=== PATIENT | female | born 1940 | race Caucasian/White ===

== ENCOUNTER → 2016-08-22 | Outpatient (CLI) | payer OTHER, MEDICARE ==
[2014-09-08 14:45] VITALS: BP 156/92
--- NOTE | 2016-08-23 16:38 | NM ---
BONE SCAN CLINICAL INDICATION: Thoracic compression fracture PROCEDURE: Approximately 2-4 hours following intravenous administration of 25.3 mCi of [id number], whole body delayed planar images were obtained from the anterior and posterior projections. COMPARISON: None FINDINGS: Degenerative uptake throughout the visualized thoracolumbar spine. There is normal by distribution of the radiotracer within the genitourinary system and soft tissues. IMPRESSION: 1. Degenerate uptake throughout the thoracolumbar spine. It should be noted bone scan is a nonspeci fic examination and evaluation of compression fractures is better performed by x-ray and cross-secti onal imaging. Reported By:
== END ==
LOC: RAD 08:51
PROVIDERS: ATTEND Physical Medicine & Rehabilitation Pain Medicine
DX: G54.3 Thoracic root disorders, not elsewhere classified (principal)
CPT/HCPCS: 78306

== ENCOUNTER → 2016-10-30 | Outpatient (CLI) | payer OTHER, MEDICARE ==
[2014-09-08 14:45] VITALS: BP 156/92
[2016-10-30 08:53] LABS: BASOPHILS # (AUTO) 0.1 X10^3/uL (0.0-0.1); BASOPHILS % (AUTO) 1.1 % (0.2-1.0); EOSINOPHILS # (AUTO) 0.1 x10^3/uL (0.0-0.2); EOSINOPHILS % (AUTO) 1.4 % (0.9-2.9); HEMATOCRIT 36.6 % (36.0-47.0); HEMOGLOBIN 12.3 g/dL (12.0-16.0); LYMPHOCYTES # (AUTO) 1.6 X10^3/uL (1.3-2.9); LYMPHOCYTES % (AUTO) 23.4 % (21.0-51.0); MEAN CORPUSCULAR HEMOGLOBIN 30.8 pg (27.0-34.0); MEAN CORPUSCULAR HGB CONC 33.6 g/dL (33.0-35.0); MEAN CORPUSCULAR VOLUME 91.6 fL (80.0-100.0); MEAN PLATELET VOLUME 8.4 fL (7.4-11.0); MONOCYTES # (AUTO) 0.6 x10^3/uL (0.3-0.8); MONOCYTES % (AUTO) 9.5 % (0.0-13.0); NEUTROPHILS # (AUTO) 4.4 x10^3/uL (2.2-4.8); NEUTROPHILS % (AUTO) 64.6 % (42.0-75.0); PLATELET COUNT 311 X10^3/uL (150.0-450.0); RED BLOOD COUNT 3.99 X10^6/uL (3.5-5.4); RED CELL DISTRIBUTION WIDTH 12.5 % (11.6-16.5); WHITE BLOOD COUNT 6.8 X10^3/uL (3.6-10.0)
[2016-10-30 08:53] LABS: BILIRUBIN,URINE NEGATIVE (NEGATIVE); BLOOD/HEMOGLOBIN,URINE NEGATIVE (NEGATIVE); GLUCOSE, URINE NEGATIVE (NEGATIVE); KETONES,URINE NEGATIVE (NEGATIVE); LEUKOCYTE ESTERASE ,URINE 2+ (NEGATIVE); NITRITES,URINE NEGATIVE (NEGATIVE); PROTEIN,URINE NEGATIVE (NEGATIVE); UROBILINOGEN,URINE NORMAL (NORMAL)
[2016-10-30 09:01] LABS: ALANINE AMINOTRANSFERASE 26 Units/L (12-78); ALBUMIN 4.2 g/dL (3.4-5.0); ALKALINE PHOSPHATASE 53 Units/L (46-116); ASPARTATE AMINO TRANSFERASE 21 Units/L (15-37); BLOOD UREA NITROGEN 25 mg/dL (7-18); CALCIUM 9.4 mg/dL (8.5-10.1); CARBON DIOXIDE 27.6 mmol/L (21-32); CHLORIDE 105 mmol/L (98-107); CHOL/HDL RATIO 2.4 (0.0-5.0); CHOLESTEROL 194 mg/dL (0-200); CREATININE 1.31 mg/dL (0.55-1.02); GLUCOSE 106 mg/dL (65-99); HDL CHOLESTEROL 82 mg/dL (40-60); SODIUM 142 mmol/L (136-145); TOTAL PROTEIN 7.7 g/dL (6.4-8.2); TRIGLYCERIDES 108 mg/dL (0-150); eGFR BLACK RACES 50 (>60); eGFR NON BLACK RACES 42 (>60)
[2016-10-30 09:02] LABS: APPEARANCE,URINE HAZY (CLEAR); BACTERIA,URINE TRACE /HPF (NEGATIVE); COLOR,URINE YELLOW (YELLOW); RBC,URINE 0-2 /HPF (NEGATIVE); SQUAMOUS EPITHELIAL CELL,UR FEW /HPF (NEGATIVE)
== END ==
LOC: LAB 08:18
PROVIDERS: ATTEND Family Medicine
DX: I10 Essential (primary) hypertension (principal); E78.00 Pure hypercholesterolemia, unspecified; Z79.899 Other long term (current) drug therapy
CPT/HCPCS: 36415; 80053; 80061; 81001; 85025

== ENCOUNTER → 2017-01-02 | Outpatient (CLI) | payer OTHER, MEDICARE ==
[2014-09-08 14:45] VITALS: BP 156/92
--- NOTE | 2017-01-02 12:09 | CT ---
STUDY: CT HEAD WITHOUT CONTRAST HISTORY: Weakness. Gait abnormalities. COMPARISON: None. TECHNIQUE: Multiple axial images of the head were obtained from the skull base to the vertex without administration of IV contrast. Automated exposure control (AEC) was utilized to adjust the MA and/or kV. Findings: The sulci, cisterns and ventricles are prominent consistent with diffuse volume loss. There are confluent and scattered foci of low attenuation in the periventricular and subcortical whit e matter of both hemispheres. This is a nonspecific finding which likely represents microangiopathic change in a patient of this age. There is no evidence of acute territorial infarction, hemorrhage, mass, mass effect or midline shift. There are no abnormal extra-axial fluid collections. There is no evidence of acute osseous abnormality or significant soft tissue swelling. IMPRESSION: 1. No evidence of acute intracranial abnormality. 2. Nonspecific white matter change and volume loss as described. 3. If there remains strong clinical concern for acute intracranial abnormality, then an MRI examinati on should be considered for further evaluation. Reported By:
--- NOTE | 2017-01-02 12:13 | CT ---
STUDY: CT OF THE CERVICAL SPINE HISTORY: Weakness. Gait abnormalities. Technique: Multiple axial images of the cervical spine were obtained from the skull base to the thora cic inlet without administration of IV contrast. Sagittal and coronal reformats were performed and r eviewed. Automated exposure control (AEC) was utilized to adjust the MA and/or kV. Comparison: None. Findings: There is multilevel degenerative disk disease and degenerative endplate change. This is probably most notable at C3/4. There is grade 1 anterolisthesis of C6 on C7. This appears degenerative in nature. There is no evidence of acute fracture. Facet alignment is within normal limits bilaterally. There is multilevel facet arthropathy. The spinous processes are intact. There is no significant prevertebral soft tissue swelling. The lateral masses of C1, and the C1/C2 relationship are normal. The odontoid process is intact. The occipital condyles and their relationship with C1 are normal. Metallic foreign body from spinal stimulator projects over the upper thoracic spine. IMPRESSION: 1. No evidence of acute cervical spine fracture. 2. Grade 1 anterolisthesis of C6 on C7, likely degenerative in nature. 3. Multilevel cervical spondylosis. 4. Spinal stimulator electrodes projecting over the dorsal aspect of the upper thoracic spine. Reported By:
--- NOTE | 2017-01-02 17:33 | CT ---
HISTORY: Weakness, gait abnormalities. Study: CT lumbar spine without contrast Comparison: MRI lumbar spine dated December 13, 2013. Technique: Multiple axial images of the lumbar spine were obtained from the thoracolumbar junction t o the sacrum without the administration of IV contrast. Sagittal and coronal reformats were performe d and reviewed. Dose reduction techniques including Automated Exposure Control (AEC) and adjustment of mA and kV were utilized. Findings: Mild/moderate levo curvature of the lumbar spine. No acute fracture or listhesis. Multilevel mild to severe disc space narrowing. Multilevel endplate sclerosis, facet arthrosis, and disc osteophyte comp lexes. Although this is worse at L5-S1 with broad-based disc bulge causing moderate bilateral neural foraminal narrowing and spinal canal stenosis to 9 mm. The soft tissues are unremarkable. IMPRESSION: Chronic findings as above. Reported By:
== END | disposition home or self-care (01) | DRG 93 ==
LOC: RAD 10:54
PROVIDERS: ATTEND Nurse Practitioner Adult Health
DX: R26.89 Other abnormalities of gait and mobility (principal); M62.81 Muscle weakness (generalized); M47.892 Other spondylosis, cervical region; M48.06 Spinal stenosis, lumbar region
CPT/HCPCS: 70450; 72125; 72131

== ENCOUNTER 2022-10-28 11:56 | Inpatient (IN) ==
--- NOTE | 2022-10-28 12:24 | DR.AMS ---
HPI Time Seen Time Seen by Provider: 10/28/22 12:23 PCP Primary Care Physician: DR LEWIS Complaint Chief Complaint:: PT C/O GENERALIZED WEAKNESS THAT STARTED YESTERDAY AND PROGRESSED TO THE POINT THAT THIS MORNING HER WAS UNABLE TO GET HER OUT OF THE BED. PT CURRENTLY C/O HEADACHE THAT STARTED JUST PRIOR TO ARRIVAL AND RIGHT ARM PAIN. COVID-19 Coronavirus risk:travel/contact w/high risk person: No Has patient experienced Coronavirus symptoms: No Source History Provided: Patient and Family Member Mode of Arrival Mode of Arrival: Stretcher Timing Onset of Chief Complaint: 10/28/22 PMH PMH Past Medical History: Yes Past Medical History: Arthritis, Dyslipidemia, GERD and Hypertension Past Medical History Comment: PARKINSONS Past Surgical History: Yes Surgical History: Hysterectomy Family History History of Family Medical Conditions: Yes Family Medical History: Hypertension Social History Does patient currently use any type of tobacco product: No Have you used tobacco products in the last 12 months: No Type of Tobacco Use: None Does any household member use tobacco: No Alcohol Use: None Do you use any recreational Drugs:: No Lives With: Spouse Lives Where: Home Travel Risk Coronavirus risk:travel/contact w/high risk person: No Has patient experienced Coronavirus symptoms: No Infectious screening In the last 2 months have you had wt loss of >10#?: NO Have you had fever, night sweats or hemotysis?: No Have you traveled outside the country in the last 6 months?: No Isolation: Standard PE Vitals Vital Signs: Temp Pulse Resp BP BP Pulse Ox O2 Del Method 10/28/22 18:00 80 13 96 10/28/22 18:00 158/67 10/28/22 17:45 80 15 98 10/28/22 17:45 160/75 10/28/22 17:30 79 11 L 97 10/28/22 17:30 129/67 10/28/22 17:15 79 14 97 10/28/22 17:15 134/67 10/28/22 17:00 79 16 98 10/28/22 17:00 141/70 10/28/22 16:45 80 12 97 10/28/22 16:45 145/73 10/28/22 16:30 82 11 L 97 10/28/22 16:30 129/63 10/28/22 16:15 86 13 96 10/28/22 16:15 136/63 10/28/22 16:00 90 14 97 10/28/22 16:00 100/55 10/28/22 15:45 86 14 98 10/28/22 15:45 119/60 10/28/22 15:37 122/62 10/28/22 15:37 90 16 97 10/28/22 15:30 85 16 98 10/28/22 15:15 88 12 97 10/28/22 15:00 89 16 98 10/28/22 16:14 100/55 10/28/22 16:00 18 10/28/22 14:45 84 13 10/28/22 14:30 84 17 10/28/22 14:15 87 17 10/28/22 14:00 85 14 10/28/22 13:45 81 14 10/28/22 14:53 18 10/28/22 13:30 80 17 10/28/22 13:15 80 14 10/28/22 13:01 82 14 10/28/22 13:12 20 10/28/22 12:45 85 17 100 10/28/22 12:45 164/76 10/28/22 12:31 85 18 99 10/28/22 12:31 163/74 10/28/22 12:30 86 16 99 10/28/22 12:15 86 14 99 10/28/22 12:13 87 9 L 99 10/28/22 12:10 98.4 F 86 22 190/84 99 Room Air ROR Labs Reviewed Result Diagrams: 10/28/22 12:34 10/28/22 12:34 Laboratory: WBC 5.7 X10^3/uL (3.6-10.0) 10/28/22 12:34 RBC 3.94 X10^6/uL (3.5-5.4) 10/28/22 12:34 Hgb 12.4 g/dL (12.0-16.0) 10/28/22 12:34 Hct 37.4 % (36.0-47.0) 10/28/22 12:34 MCV 95.0 fL (80.0-100.0) 10/28/22 12:34 MCH 31.6 pg (27.0-34.0) 10/28/22 12:34 MCHC 33.2 g/dL (33.0-35.0) 10/28/22 12:34 RDW 13.8 % (11.6-16.5) 10/28/22 12:34 Plt Count 306 X10^3/uL (150.0-450.0) 10/28/22 12:34 MPV 7.6 fL (7.4-11.0) 10/28/22 12:34 Neut % (Auto) 58.7 % (42.0-75.0) 10/28/22 12:34 Lymph % (Auto) 26.8 % (21.0-51.0) 10/28/22 12:34 [place] % (Auto) 12.1 % (0.0-13.0) 10/28/22 12:34 Eos % (Auto) 2.0 % (0.9-2.9) 10/28/22 12:34 Baso % (Auto) 0.4 % (0.2-1.0) 10/28/22 12:34 Neut # (Auto) 3.4 x10^3/uL (2.2-4.8) 10/28/22 12:34 Lymph # (Auto) 1.5 X10^3/uL (1.3-2.9) 10/28/22 12:34 [place] # (Auto) 0.7 x10^3/uL (0.3-0.8) 10/28/22 12:34 Eos # (Auto) 0.1 x10^3/uL (0.0-0.2) 10/28/22 12:34 Baso # (Auto) 0.0 X10^3/uL (0.0-0.1) 10/28/22 12:34 Absolute Nucleated RBC 0.1 /100WBC 10/28/22 12:34 Sodium 142 mmol/L (136-145) 10/28/22 12:34 Corrected Sodium TNP 10/28/22 12:34 Potassium 3.6 mmol/L (3.5-5.1) 10/28/22 12:34 Chloride 103 mmol/L (98-107) 10/28/22 12:34 Carbon Dioxide 32.4 mmol/L (21-32) H 10/28/22 12:34 BUN 27 mg/dL (7-18) H 10/28/22 12:34 Creatinine 1.23 mg/dL (0.55-1.02) H 10/28/22 12:34 Est GFR (MDRD) Af Amer 53 (>60) L 10/28/22 12:34 Est GFR (MDRD) Non-Af 44 (>60) L 10/28/22 12:34 Glucose 94 mg/dL (65-99) 10/28/22 12:34 Calcium 8.7 mg/dL (8.5-10.1) 10/28/22 12:34 Corrected Calcium TNP 10/28/22 12:34 Total Bilirubin 0.50 mg/dL (0.2-1.0) 10/28/22 12:34 AST 18 Units/L (15-37) 10/28/22 12:34 ALT 11 Units/L (12-78) L 10/28/22 12:34 Alkaline Phosphatase 58 Units/L (46-116) 10/28/22 12:34 Creatine Kinase 78 Units/L (26-192) 10/28/22 12:24 Troponin I High Sens 8.4 ng/L (4.0-60.0) 10/28/22 12:24 Total Protein 6.4 g/dL (6.4-8.2) 10/28/22 12:34 Albumin 3.6 g/dL (3.4-5.0) 10/28/22 12:34 Globulin 2.8 g/dL (2.5-4.5) 10/28/22 12:34 Albumin/Globulin Ratio 1.3 Ratio (1.1-2.1) 10/28/22 12:34 Amylase 73 Units/L (25-115) 10/28/22 12:34 Lipase 96 Units/L (73-393) 10/28/22 12:34 Specimen Type Catherized urine 10/28/22 12:45 Urine Color Straw (YELLOW) 10/28/22 12:45 Urine Appearance Clear (CLEAR) 10/28/22 12:45 Urine pH 6.5 (5.0 - 8.0) 10/28/22 12:45 Ur Specific [place] 1.015 (1.000-1.030) 10/28/22 12:45 Urine Protein Negative (NEGATIVE) 10/28/22 12:45 Urine Glucose (UA) Negative (NEGATIVE) 10/28/22 12:45 Urine Ketones Negative (NEGATIVE) 10/28/22 12:45 Urine Blood Negative (NEGATIVE) 10/28/22 12:45 Urine Nitrite Negative (NEGATIVE) 10/28/22 12:45 Urine Bilirubin Negative (NEGATIVE) 10/28/22 12:45 Urine Urobilinogen Normal (NORMAL) 10/28/22 12:45 Ur Leukocyte Esterase Negative (NEGATIVE) 10/28/22 12:45 Opioid Opioid Risk Tool Age (Carl box if 16-45): No History of Preadolescent Sexual Abuse: No Total: 0 Total Score Risk Category: Low Risk Copyright: [facility] predicting aberrant behaviors Discharge Plan Diagnosis Discharge Problem: Acute dehydration, Generalized weakness, Headache Discharge Plan Patient Disposition: 01 HOME, SELF-CARE Condition: Stable Prescriptions: No Action polyethylene glycol 3350 [Miralax] 17 gram Powder In Packet 17 g PO PRN PRN baclofen 10 mg tablet 10 mg PO BID hydrocodone-acetaminophen 7.5-325 mg tablet 7.5 - 325 tab PO TID PRN losartan 25 mg tablet 25 mg PO DAILY Rx Instructions: IN EVENING metronidazole 0.75 % Gel 0.75 applic TOPICAL HS vitamin B6-vitamin E-magnesium Tablet 1 tab PO WEEKLY duloxetine 30 mg capsule,delayed release(DR/EC) 20 mg PO DAILY Label Comments: TAKE 1 CAPSULE BY MOUTH TWICE DAILY FOR NERVE PAIN Rx Instructions: 20 MG IN AM AND 40 MG IN PM cholecalciferol (vitamin D3) 100 mcg (4,000 unit) Capsule 100 mcg PO DAILY melatonin 10 mg Tablet 10 - 15 mg PO HS Rytary 36.25-145 mg Capsule, Extended Release 36.25 - 145 cap PO TID oxycodone-acetaminophen [Percocet] 10-325 mg tablet 1 tab PO TID MDD 3 PRNQty: 60 0RF Health Concerns: Post Hospitalization: new medications and changes needed to prevent readmission or further decline. Pt educated and given instructions on all concerns. Plan of Treatment: Continue with present treatment and follow up plan. Pt is to keep follow up appointment as instructed and take medications as ordered. Orders to Discharge Patient Discharge Orders: Transfer (Routine); Ordered 10/28/22 Ordered By: TODD COLEMAN Follow ups/Referrals Follow ups/Referrals: TANI LEWIS [Primary Care Provider] - 3 days
[2022-10-28 12:47] LABS: BASOPHILS % (AUTO) 0.4 % (0.2-1.0); EOSINOPHILS # (AUTO) 0.1 x10^3/uL (0.0-0.2); HEMATOCRIT 37.4 % (36.0-47.0); HEMOGLOBIN 12.4 g/dL (12.0-16.0); LYMPHOCYTES # (AUTO) 1.5 X10^3/uL (1.3-2.9); LYMPHOCYTES % (AUTO) 26.8 % (21.0-51.0); MEAN CORPUSCULAR HEMOGLOBIN 31.6 pg (27.0-34.0); MEAN CORPUSCULAR HGB CONC 33.2 g/dL (33.0-35.0); MEAN PLATELET VOLUME 7.6 fL (7.4-11.0); MONOCYTES # (AUTO) 0.7 x10^3/uL (0.3-0.8); MONOCYTES % (AUTO) 12.1 % (0.0-13.0); NEUTROPHILS # (AUTO) 3.4 x10^3/uL (2.2-4.8); NEUTROPHILS % (AUTO) 58.7 % (42.0-75.0); PLATELET COUNT 306 X10^3/uL (150.0-450.0); RED BLOOD COUNT 3.94 X10^6/uL (3.5-5.4); RED CELL DISTRIBUTION WIDTH 13.8 % (11.6-16.5); WHITE BLOOD COUNT 5.7 X10^3/uL (3.6-10.0)
[2022-10-28 12:57] LABS: BILIRUBIN,URINE NEGATIVE (NEGATIVE); BLOOD/HEMOGLOBIN,URINE NEGATIVE (NEGATIVE); GLUCOSE, URINE NEGATIVE (NEGATIVE); KETONES,URINE NEGATIVE (NEGATIVE); LEUKOCYTE ESTERASE ,URINE NEGATIVE (NEGATIVE); NITRITES,URINE NEGATIVE (NEGATIVE); PH,URINE 6.5 (5.0 - 8.0); PROTEIN,URINE NEGATIVE (NEGATIVE); UROBILINOGEN,URINE NORMAL (NORMAL)
[2022-10-28 12:59] LABS: APPEARANCE,URINE CLEAR (CLEAR); COLOR,URINE STRAW (YELLOW)
[2022-10-28 13:04] LABS: ALANINE AMINOTRANSFERASE 11 Units/L (12-78); ALBUMIN 3.6 g/dL (3.4-5.0); ALKALINE PHOSPHATASE 58 Units/L (46-116); AMYLASE 73 Units/L (25-115); ASPARTATE AMINO TRANSFERASE 18 Units/L (15-37); BLOOD UREA NITROGEN 27 mg/dL (7-18); CALCIUM 8.7 mg/dL (8.5-10.1); CARBON DIOXIDE 32.4 mmol/L (21-32); CHLORIDE 103 mmol/L (98-107); CREATININE 1.23 mg/dL (0.55-1.02); GLUCOSE 94 mg/dL (65-99); LIPASE 96 Units/L (73-393); POTASSIUM 3.6 mmol/L (3.5-5.1); SODIUM 142 mmol/L (136-145); TOTAL PROTEIN 6.4 g/dL (6.4-8.2); eGFR NON BLACK RACES 44 (>60)
[2022-10-28] MEDS ORDERED: ZOFRAN INJ 4 MG VIAL IVP ONE (13:06)
[2022-10-28] MEDS ORDERED: MORPHINE SULFATE INJ 2 MG INJ IVP ONE (13:06)
[2022-10-28] MEDS ORDERED: ZOFRAN INJ 4 MG VIAL ONE (13:07)
[2022-10-28] MEDS ORDERED: MORPHINE SULFATE INJ 2 MG INJ ONE (13:07)
--- NOTE | 2022-10-28 14:16 | CT ---
HISTORYheadache.STUDYBRAIN W/O CONCOMPARISONHead CT 11/29/2021TECHNIQUEMultiple CT axial images of the head were obtained without IV contrast. Coronal and sagittal images were reconstructed. Dose reduction techniques included Automated Exposure Control (AEC) and adjustment of mA and kV.FINDINGSAge-related findings include central and cortical atrophy with areas of low density in the periventricular white matter compatible with micro-ischemic changes. There is no mass, shift, or hemorrhage. Cerebellar tonsils are at an appropriate level. No fluid in the sinuses or mucosal thickening to suggest sinusitis. There is no mastoid effusion. Old left frontal sinus anterior wall fracture with repair is stable when compared to the prior study.IMPRESSION1. No acute findingElectronically signed by: Tiago Bass (Oct 28, 2022 14:15:09)
[2022-10-28] MEDS ORDERED: DILAUDID INJ IVP ONE ×2 (14:47→15:48)
[2022-10-28] MEDS ORDERED: DILAUDID INJ ONE ×2 (14:48→15:50)
[2022-10-28] MEDS ORDERED: NS 1,000 ML IV 1,000 ML IV ONE (15:48)
[2022-10-28] MEDS ORDERED: NS 1,000 ML IV 1,000 ML ONE (15:51)
--- NOTE | 2022-10-28 16:22 | CT ---
HISTORYabd painSTUDYCT abdomen pelvis without IV contrastCOMPARISONCT 05/03/2019TECHNIQUEMultiple axial images of the abdomen and pelvis were obtained from the lung bases to the pubic symphysis without the administration of IV contrast. Dose reduction techniques including Automated Exposure Control (AEC) and adjustment of mA and kV were utilized.FINDINGSThe visualized portions of the lung bases suggest CHF with probable areas of atelectasis and/or pulmonary edema.The liver and spleen display no abnormalities.Gallbladder appears normal. No biliary ductal dilation.No pancreatic abnormality is seen.The adrenal glands appear normal.Left extrarenal pelvis is similar to prior study. No nephrolithiasis or hydronephrosis. Multiple phleboliths are seen in the pelvis. No ureteral stone or dilation. Bladder is decompressed with a Fuentes catheter.Probable mild diffuse constipation. There is mild increased fluid in air in the nondilated small bowel. This could be passage of fluid bolus but consider possible gastroenteritis. Probable small sliding-type hiatus hernia. Appendix is not seen but no pericecal inflammation is seen. Distal rectum is not distended limiting evaluation.No adnexal masses are seen. Tiny umbilical hernia is seen containing fat.Abdominal aorta is normal in size.No suspicious lymphadenopathy.No free intraperitoneal air or fluid is seen.No acute bony abnormality is seen. Persistent prominent scoliosis.IMPRESSIONMild increased fluid and air in the small bowel could be passage of fluid bolus but consider possible gastroenteritis.Likely mild diffuse constipation.Electronically signed by: Carlos Joyner (Oct 28, 2022 16:22:05)
[2022-10-28 18:24] LABS: ABG ALLEN TEST POS; ABG BASE EXCESS 3.5 mmol/L (-2.0-2.0); ABG HCO3 29.6 mmol/L (22-26)
[2022-10-28] MEDS: NS 1,000 ML IV 1,000 ML IV SCH (20:30)
[2022-10-29 06:24] VITALS: BMI 28.5
[2022-10-29 06:30] LABS: BASOPHILS % (AUTO) 0.4 % (0.2-1.0); EOSINOPHILS % (AUTO) 0.6 % (0.9-2.9); HEMATOCRIT 33.7 % (36.0-47.0); HEMOGLOBIN 11.3 g/dL (12.0-16.0); LYMPHOCYTES # (AUTO) 1.1 X10^3/uL (1.3-2.9); LYMPHOCYTES % (AUTO) 17.4 % (21.0-51.0); MEAN CORPUSCULAR HEMOGLOBIN 32.1 pg (27.0-34.0); MEAN CORPUSCULAR HGB CONC 33.7 g/dL (33.0-35.0); MEAN CORPUSCULAR VOLUME 95.1 fL (80.0-100.0); MEAN PLATELET VOLUME 8.1 fL (7.4-11.0); MONOCYTES # (AUTO) 0.6 x10^3/uL (0.3-0.8); MONOCYTES % (AUTO) 10.1 % (0.0-13.0); NEUTROPHILS # (AUTO) 4.6 x10^3/uL (2.2-4.8); NEUTROPHILS % (AUTO) 71.5 % (42.0-75.0); PLATELET COUNT 291 X10^3/uL (150.0-450.0); RED BLOOD COUNT 3.54 X10^6/uL (3.5-5.4); RED CELL DISTRIBUTION WIDTH 13.5 % (11.6-16.5); WHITE BLOOD COUNT 6.4 X10^3/uL (3.6-10.0)
[2022-10-29 07:11] LABS: ALANINE AMINOTRANSFERASE 10 Units/L (12-78); ALBUMIN 3.1 g/dL (3.4-5.0); ALKALINE PHOSPHATASE 49 Units/L (46-116); ASPARTATE AMINO TRANSFERASE 18 Units/L (15-37); BLOOD UREA NITROGEN 19 mg/dL (7-18); CALCIUM 8.5 mg/dL (8.5-10.1); CHLORIDE 106 mmol/L (98-107); COR CA(FOR HYPOALB) 9.2 mg/dL (8.5-10.1); CREATININE 0.92 mg/dL (0.55-1.02); GLUCOSE 98 mg/dL (65-99); MAGNESIUM 1.7 mg/dL (2.0-2.9); POTASSIUM 3.7 mmol/L (3.5-5.1); SODIUM 143 mmol/L (136-145); TOTAL PROTEIN 5.7 g/dL (6.4-8.2); eGFR NON BLACK RACES > 60 (>60)
--- NOTE | 2022-10-29 14:45 | RAD ---
CHEST, 1 VIEWHISTORY: WHEEZINGStudy: Single view of the chest.Comparison:NoneFindings:Examination limited by poor positioning.Possible mild cardiomegaly. No focal consolidations. Possible trace right effusion. Osseous structures demonstrate no acute abnormality.IMPRESSION:1. Limited examination as above. No definite acute findings.Electronically signed by: ELENO CEDILLO (Oct 29, 2022 14:44:31)
[2022-10-29] MEDS ORDERED: LEVODOPA PO SCH ×2 (16:00→21:00)
[2022-10-29] MEDS ORDERED: [UNRECOGNIZED DRUG - OTHER] PO SCH ×2 (16:00→21:00)
[2022-10-29] MEDS ORDERED: CARBIDOPA PO SCH ×2 (16:00→21:00)
[2022-10-29] MEDS: LEVODOPA PO SCH ×2 (17:35→21:00)
[2022-10-29] MEDS: CARBIDOPA PO SCH ×2 (17:35→21:00)
[2022-10-29] MEDS: [UNRECOGNIZED DRUG - OTHER] PO SCH ×2 (17:35→21:00)
--- NOTE | 2022-10-29 18:54 | DR.H&P ---
H&P History & Physical for Day of: H&P Date: 10/29/22 Chief Complaint Chief Complaint: Generalized weakness, Altered mental status Dehydration Abdominal pain Allergies Allergies Allergy/AdvReac Type Severity Reaction Status Date / Time ciprofloxacin [From Cipro] Allergy Verified 01/23/22 17:50 meperidine [From Demerol] Allergy Verified 01/23/22 17:50 prochlorperazine Allergy Verified 01/23/22 17:50 [From Compazine] Sulfa (Sulfonamide Allergy Verified 01/23/22 17:50 Antibiotics) [SULFA] History of Present Illness History of Present Illness: Pt is a 82 year old female past medical history of Parkinsons's Disease, Hypertension, Arthritis presented with generalized weakness and altered mental status. Patient has been worsening for the past week and was unable to get out of bed yesterday. Patient does have severe Parkinson's disease, and is being followed by neurology and her PCP. Patient states she has also had decreased oral intake. Labs/imaging: WBC 6.4, hemoglobin 11.3, platelets 291, sodium 143, potassium 3.7, creatinine 1.23, glucose 98. UA negative. CT of the head no acute intracranial findings. Patient did have some abdominal pain. CT of the abdomen and pelvis revealed gastroenteritis or constipation. Patient denies nausea vomiting, diarrhea. Patient does have a history of chronic UTI and takes Macrobid daily. Plan: Will admit to [facility], start patient normal saline. Order CXR. Monitor mental status. Resume home medications, hold gabapentin and opioids due to AMS. Patient's AMS can be related to polypharmacy as patient is taking a lot of sedating medications. PT/OT consulted. Discussed plan with daughter. Advance diet as tolerated. Patient's worsening weakness can be due to severe Parkinso n's. Will repeat labs in the AM. Past Medical History Past Medical History: Arthritis, Dyslipidemia, GERD and Hypertension Past Surgical History Surgical History: TEXTILE [employer] Surgery, Hysterectomy, Joint Replacement, Ortho Surgery and Other Family History Family Medical History: Hypertension Social History Does patient currently use any type of tobacco product: No Have you used tobacco products in the last 12 months: No Type of Tobacco Use: None Does any household member use tobacco: No Alcohol Use: None Drug Use: Prescription Drugs Medications Home Medications: Home Medications Medication Instructions Recorded Confirmed Type baclofen 10 mg tablet 10 mg PO BID 09/20/21 10/29/22 History carbidopa ER 36.25 mg-levodopa 145 36.25 - 145 cap PO TID 09/20/21 09/20/21 History mg capsule,extended release (Rytary) cholecalciferol (vitamin D3) 100 100 mcg PO DAILY 09/20/21 09/20/21 History mcg (4,000 unit) capsule duloxetine 30 mg capsule,delayed 20 mg PO DAILY 09/20/21 09/20/21 History release hydrocodone 7.5 mg-acetaminophen 7.5 - 325 tab PO TID PRN 09/20/21 10/29/22 His tory 325 mg tablet losartan 25 mg tablet 25 mg PO DAILY 09/20/21 10/29/22 History melatonin 10 mg tablet 10 - 15 mg PO HS 09/20/21 09/20/21 History metronidazole 0.75 % topical gel 0.75 applic topical HS 09/20/21 09/20/21 History polyethylene glycol 3350 17 gram 17 g PO PRN PRN 09/20/21 09/20/21 History oral powder packet (Miralax) vitamin B6-vitamin E-magnesium 1 tab PO WEEKLY 09/20/21 09/20/21 History tablet Labs Result Diagrams: 10/29/22 05:35 10/29/22 05:35 Labs: Laboratory WBC 6.4 X10^3/uL (3.6-10.0) 10/29/22 05:35 RBC 3.54 X10^6/uL (3.5-5.4) 10/29/22 05:35 Hgb 11.3 g/dL (12.0-16.0) L 10/29/22 05:35 Hct 33.7 % (36.0-47.0) L 10/29/22 05:35 MCV 95.1 fL (80.0-100.0) 10/29/22 05:35 MCH 32.1 pg (27.0-34.0) 10/29/22 05:35 MCHC 33.7 g/dL (33.0-35.0) 10/29/22 05:35 RDW 13.5 % (11.6-16.5) 10/29/22 05:35 Plt Count 291 X10^3/uL (150.0-450.0) 10/29/22 05:35 MPV 8.1 fL (7.4-11.0) 10/29/22 05:35 Neut % (Auto) 71.5 % (42.0-75.0) 10/29/22 05:35 Lymph % (Auto) 17.4 % (21.0-51.0) L 10/29/22 05:35 [place] % (Auto) 10.1 % (0.0-13.0) 10/29/22 05:35 Eos % (Auto) 0.6 % (0.9-2.9) L 10/29/22 05:35 Baso % (Auto) 0.4 % (0.2-1.0) 10/29/22 05:35 Neut # (Auto) 4.6 x10^3/uL (2.2-4.8) 10/29/22 05:35 Lymph # (Auto) 1.1 X10^3/uL (1.3-2.9) L 10/29/22 05:35 [place] # (Auto) 0.6 x10^3/uL (0.3-0.8) 10/29/22 05:35 Eos # (Auto) 0.0 x10^3/uL (0.0-0.2) 10/29/22 05:35 Baso # (Auto) 0.0 X10^3/uL (0.0-0.1) 10/29/22 05:35 Absolute Nucleated RBC 0.0 /100WBC 10/29/22 05:35 Sample Site [place] 10/28/22 18:14 ABG pH 7.380 (7.35-7.45) 10/28/22 18:14 ABG pCO2 50.0 mmHg (35.0-45.0) H 10/28/22 18:14 ABG pO2 85.0 mmHg (80.0-100.0) 10/28/22 18:14 ABG HCO3 29.6 mmol/L (22-26) H 10/28/22 18:14 ABG O2 Saturation 96.0 % (90-100) 10/28/22 18:14 ABG Base Excess 3.5 mmol/L (-2.0-2.0) H 10/28/22 18:14 [place] Test Pos 10/28/22 18:14 A-a Gradient 52.0 mmHg 10/28/22 18:14 FiO2 28.0 10/28/22 18:14 Blood Gas Comments Pt dolores well elj 10/28/22 18:14 Sodium 143 mmol/L (136-145) 10/29/22 05:35 Corrected Sodium TNP 10/29/22 05:35 Potassium 3.7 mmol/L (3.5-5.1) 10/29/22 05:35 Chloride 106 mmol/L (98-107) 10/29/22 05:35 Carbon Dioxide 27.0 mmol/L (21-32) 10/29/22 05:35 BUN 19 mg/dL (7-18) H 10/29/22 05:35 Creatinine 0.92 mg/dL (0.55-1.02) 10/29/22 05:35 Est GFR (MDRD) Af Amer > 60 (>60) 10/29/22 05:35 Est GFR (MDRD) Non-Af > 60 (>60) 10/29/22 05:35 Glucose 98 mg/dL (65-99) 10/29/22 05:35 Calcium 8.5 mg/dL (8.5-10.1) 10/29/22 05:35 Corrected Calcium 9.2 mg/dL (8.5-10.1) 10/29/22 05:35 Magnesium 1.7 mg/dL (2.0-2.9) L 10/29/22 05:35 Total Bilirubin 0.50 mg/dL (0.2-1.0) 10/29/22 05:35 AST 18 Units/L (15-37) 10/29/22 05:35 ALT 10 Units/L (12-78) L 10/29/22 05:35 Alkaline Phosphatase 49 Units/L (46-116) 10/29/22 05:35 Creatine Kinase 78 Units/L (26-192) 10/28/22 12:24 Troponin I High Sens 8.4 ng/L (4.0-60.0) 10/28/22 12:24 Total Protein 5.7 g/dL (6.4-8.2) L 10/29/22 05:35 Albumin 3.1 g/dL (3.4-5.0) L 10/29/22 05:35 Globulin 2.6 g/dL (2.5-4.5) 10/29/22 05:35 Albumin/Globulin Ratio 1.2 Ratio (1.1-2.1) 10/29/22 05:35 Amylase 73 Units/L (25-115) 10/28/22 12:34 Lipase 96 Units/L (73-393) 10/28/22 12:34 Specimen Type Catherized urine 10/28/22 12:45 Urine Color Straw (YELLOW) 10/28/22 12:45 Urine Appearance Clear (CLEAR) 10/28/22 12:45 Urine pH 6.5 (5.0 - 8.0) 10/28/22 12:45 Ur Specific [place] 1.015 (1.000-1.030) 10/28/22 12:45 Urine Protein Negative (NEGATIVE) 10/28/22 12:45 Urine Glucose (UA) Negative (NEGATIVE) 10/28/22 12:45 Urine Ketones Negative (NEGATIVE) 10/28/22 12:45 Urine Blood Negative (NEGATIVE) 10/28/22 12:45 Urine Nitrite Negative (NEGATIVE) 10/28/22 12:45 Urine Bilirubin Negative (NEGATIVE) 10/28/22 12:45 Urine Urobilinogen Normal (NORMAL) 10/28/22 12:45 Ur Leukocyte Esterase Negative (NEGATIVE) 10/28/22 12:45 Review of Systems Constitutional: Weakness Eyes: No Symptoms Reported Respiratory: No Symptoms Reported Cardiovascular: No Symptoms Reported Gastrointestinal: Abdominal Pain Skin: No Symptoms Reported Neurological: Weakness and Confusion Physical Exam Vital Signs: Vital Signs Temperature 97.9 F Pulse Rate [Left Brachial] 102 Respiratory Rate 19 Blood Pressure [Left Arm] 118/62 O2 Sat by Pulse Oximetry 97 10/29/22 05:42 10/29/22 07:00 Pulse Rhythm [Apical] Regular Regular Pulse Strength [Apical] Normal Normal Respiratory Depth Normal Normal Respiratory Effort Normal Non-Labored Normal Non-Labored Respiratory Pattern Normal Normal Oxygen Delivery Method Nasal Cannula Nasal Cannula FIO2% 28 Oriented: Not Oriented Eyes: Normal Nose: Normal Respiratory: Clear Throughout Cardiovascular: Normal Auscultation: Bowel Sounds: Normal Palpation: Normal Tenderness: Normal Skin: Decreased [place]urgur Musculoskeletal: Motor Deficit Psychiatric: Normal Mood Description: Calm Affect: Normal Speech Pattern: Clear and Appropriate Assessment/Plan (1) Generalized weakness: Status: Acute (2) Acute dehydration: Status: Acute (3) 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
[2022-10-29] MEDS: MACROBID CAP 100 MG EXT REL PO SCH (21:00)
[2022-10-29] MEDS: NS 1,000 ML IV 1,000 ML IV SCH (21:30)
[2022-10-30 05:20] LABS: BASOPHILS # (AUTO) 0.1 X10^3/uL (0.0-0.1); BASOPHILS % (AUTO) 0.7 % (0.2-1.0); EOSINOPHILS % (AUTO) 0.2 % (0.9-2.9); HEMATOCRIT 36.7 % (36.0-47.0); HEMOGLOBIN 12.3 g/dL (12.0-16.0); LYMPHOCYTES # (AUTO) 1.2 X10^3/uL (1.3-2.9); LYMPHOCYTES % (AUTO) 13.7 % (21.0-51.0); MEAN CORPUSCULAR HEMOGLOBIN 31.4 pg (27.0-34.0); MEAN CORPUSCULAR HGB CONC 33.5 g/dL (33.0-35.0); MEAN CORPUSCULAR VOLUME 93.9 fL (80.0-100.0); MEAN PLATELET VOLUME 7.8 fL (7.4-11.0); MONOCYTES # (AUTO) 0.9 x10^3/uL (0.3-0.8); MONOCYTES % (AUTO) 10.2 % (0.0-13.0); NEUTROPHILS # (AUTO) 6.3 x10^3/uL (2.2-4.8); NEUTROPHILS % (AUTO) 75.2 % (42.0-75.0); PLATELET COUNT 279 X10^3/uL (150.0-450.0); RED BLOOD COUNT 3.91 X10^6/uL (3.5-5.4); RED CELL DISTRIBUTION WIDTH 13.1 % (11.6-16.5); WHITE BLOOD COUNT 8.4 X10^3/uL (3.6-10.0)
[2022-10-30 05:26] LABS: ALANINE AMINOTRANSFERASE 20 Units/L (12-78); ALBUMIN 3.1 g/dL (3.4-5.0); ALKALINE PHOSPHATASE 55 Units/L (46-116); ASPARTATE AMINO TRANSFERASE 17 Units/L (15-37); BLOOD UREA NITROGEN 22 mg/dL (7-18); CALCIUM 8.4 mg/dL (8.5-10.1); CARBON DIOXIDE 23.7 mmol/L (21-32); CHLORIDE 108 mmol/L (98-107); COR CA(FOR HYPOALB) 9.1 mg/dL (8.5-10.1); CREATININE 0.87 mg/dL (0.55-1.02); GLUCOSE 93 mg/dL (65-99); POTASSIUM 3.5 mmol/L (3.5-5.1); SODIUM 144 mmol/L (136-145); eGFR NON BLACK RACES > 60 (>60)
[2022-10-30] MEDS: K-RIDER 10 MEQ/NS 100 ML 10 MEQ/100 ML BAG IV PRN ×2 (06:33→10:29)
[2022-10-30] MEDS ORDERED: DULCOLAX SUPPOSITORY 10 MG RECTAL ONE (08:29)
[2022-10-30] MEDS ORDERED: CYMBALTA PO SCH (09:00)
[2022-10-30] MEDS ORDERED: CARBIDOPA LEVODOPA PO SCH (09:00)
[2022-10-30] MEDS ORDERED: [UNRECOGNIZED DRUG - OTHER] PO SCH (09:00)
[2022-10-30] MEDS: CARBIDOPA PO SCH ×4 (10:30→21:00)
[2022-10-30] MEDS: NEURONTIN TAB 600 MG PO SCH ×2 (10:30→21:42)
[2022-10-30] MEDS: LEVODOPA PO SCH ×4 (10:30→21:00)
[2022-10-30] MEDS: [UNRECOGNIZED DRUG - OTHER] PO SCH ×4 (10:30→21:00)
[2022-10-30] MEDS: COZAAR PO SCH (10:31)
[2022-10-30] MEDS: MIRALAX POWDER (255 GRAMS BTL) PO SCH (10:31)
[2022-10-30] MEDS: LIORESAL PO SCH ×2 (10:31→21:42)
[2022-10-30] MEDS: NS 1,000 ML IV 1,000 ML IV SCH ×3 (10:40→23:00)
[2022-10-30] MEDS: APRESOLINE INJ 20 MG VIAL IVP PRN ×2 (12:17→21:43)
[2022-10-30] MEDS: MORPHINE SULFATE INJ 2 MG INJ IVP PRN ×2 (13:18→21:43)
[2022-10-30] MEDS ORDERED: DULCOLAX SUPPOSITORY 10 MG ONE (15:33)
[2022-10-30] MEDS: LOVENOX INJ 40 MG SYR SC SCH (17:40)
[2022-10-30] MEDS: MACROBID CAP 100 MG EXT REL PO SCH (21:42)
[2022-10-30] MEDS: CYMBALTA PO SCH (22:00)
[2022-10-31] MEDS ORDERED: TYLENOL 325 MG TAB PO ONE (00:08)
[2022-10-31] MEDS: TYLENOL 325 MG TAB PO PRN ×2 (01:06→07:55)
[2022-10-31 05:57] LABS: BASOPHILS # (AUTO) 0.1 X10^3/uL (0.0-0.1); BASOPHILS % (AUTO) 1.2 % (0.2-1.0); EOSINOPHILS % (AUTO) 0.3 % (0.9-2.9); HEMATOCRIT 36.3 % (36.0-47.0); HEMOGLOBIN 12.3 g/dL (12.0-16.0); LYMPHOCYTES # (AUTO) 1.4 X10^3/uL (1.3-2.9); LYMPHOCYTES % (AUTO) 13.6 % (21.0-51.0); MEAN CORPUSCULAR HEMOGLOBIN 31.8 pg (27.0-34.0); MEAN CORPUSCULAR HGB CONC 33.9 g/dL (33.0-35.0); MEAN PLATELET VOLUME 8.3 fL (7.4-11.0); MONOCYTES # (AUTO) 1.3 x10^3/uL (0.3-0.8); MONOCYTES % (AUTO) 12.6 % (0.0-13.0); NEUTROPHILS # (AUTO) 7.2 x10^3/uL (2.2-4.8); NEUTROPHILS % (AUTO) 72.3 % (42.0-75.0); PLATELET COUNT 272 X10^3/uL (150.0-450.0); RED BLOOD COUNT 3.87 X10^6/uL (3.5-5.4); RED CELL DISTRIBUTION WIDTH 13.5 % (11.6-16.5); WHITE BLOOD COUNT 9.9 X10^3/uL (3.6-10.0)
[2022-10-31 06:12] LABS: ALANINE AMINOTRANSFERASE 11 Units/L (12-78); ALKALINE PHOSPHATASE 50 Units/L (46-116); ASPARTATE AMINO TRANSFERASE 21 Units/L (15-37); BLOOD UREA NITROGEN 21 mg/dL (7-18); CALCIUM 8.2 mg/dL (8.5-10.1); CARBON DIOXIDE 21.7 mmol/L (21-32); CHLORIDE 105 mmol/L (98-107); CREATININE 0.84 mg/dL (0.55-1.02); GLUCOSE 95 mg/dL (65-99); MAGNESIUM 1.6 mg/dL (2.0-2.9); POTASSIUM 3.5 mmol/L (3.5-5.1); SODIUM 140 mmol/L (136-145); TOTAL PROTEIN 5.7 g/dL (6.4-8.2); eGFR NON BLACK RACES > 60 (>60)
--- NOTE | 2022-10-31 07:30 | PCM.PROG ---
Progress Note Progress Note for Day of Date of Exam: 10/30/22 Subjective Subjective: Pt is a 82 year old female past medical history of Parkinsons's Disease, Hypertension, Arthritis admitted with generalized weakness and altered mental status. This morning patient appears to be more alert than yesterday. Daughter reports that as well. Labs/imaging: WBC 9.9, hemoglobin 12.3, platelets 272, sodium 140, potassium 3.5, creatinine 0.84, glucose 95. Pt still has not had bowel movement. Plan: Pt is currently receiving normal saline. CXR yesterday showed no acute findings. Monitor mental status. Speech evaluation only ice chips but now that her mental status is improving will reassess. Resume home medications when appropriate. Hold gabapentin, but will start on IV morphine 2mg q4h prn for pain and to prevent withdrawals as patient mental status is improving and she com [place] of pain from history of neuropathy. Order suppository for constipation and enema if needed. PT/OT consulted. Discussed plan with daughter. Advance diet as tolerated. Patient's worsening weakness can be due to severe Parkinson's. Consider rehab placement. Will repeat labs in the AM. Past Medical Family Social History Allergies: Allergies ciprofloxacin [From Cipro] Allergy (Verified 01/23/22 17:50) meperidine [From Demerol] Allergy (Verified 01/23/22 17:50) prochlorperazine [From Compazine] Allergy (Verified 01/23/22 17:50) Sulfa (Sulfonamide Antibiotics) [SULFA] Allergy (Verified 01/23/22 17:50) Review of Systems ROS changes noted: see HPI Vital Signs and I&O's Vital Signs: Vital Signs Temperature 97.9 F Temperature 99.7 F Pulse Rate [Left Brachial] 90 Pulse Rate [Left Brachial] 100 Respiratory Rate 20 Respiratory Rate 20 Respiratory Rate 20 Respiratory Rate 20 Blood Pressure [Right Arm] 157/72 Blood Pressure [Right Arm] 174/79 O2 Sat by Pulse Oximetry 95 O2 Sat by Pulse Oximetry 93 10/31/22 05:55 10/31/22 04:00 Temperature 97.9 F Temperature Source Oral Pulse Rate [Left Brachial] 90 Pulse Assessment Method [Left Brachial] Dinamap Respiratory Rate 20 O2 Sat by Pulse Oximetry 95 Oxygen Delivery Method Room Air Blood Pressure [Right Arm] 157/72 Blood Pressure Mean [Right Arm] 100 Blood Pressure Source [Right Arm] Automatic Cuff Blood Pressure Position [Right Arm] Semi Florian's Weight 132 lb 11.492 oz Intake and Output: Intake & Output 10/28/22 10/29/22 10/30/22 10/31/22 23:59 23:59 23:59 23:59 Intake Total 120 / 120 1899 / 1899 1079 / 1079 1136 / 1136 Output Total 725 / 725 1025 / 1025 1150 / 1150 300 / 300 Balance -605 / -605 874 / 874 -71 / -71 836 / 836 Physical Exam Oriented: Not Oriented Eyes: Normal Nose: Normal Respiratory: Normal Cardiovascular: Normal Auscultation: Bowel Sounds: Normal Palpation: Normal Tenderness: Normal Skin: Decreased Turgur Musculoskeletal: Motor Deficit Psychiatric: Normal Mood Description: Calm Affect: Normal Speech Pattern: Clear and Appropriate Laboratory and Diagnostics Result Diagrams: 10/31/22 05:15 10/31/22 05:15 Labs: Laboratory WBC 9.9 X10^3/uL (3.6-10.0) 10/31/22 05:15 RBC 3.87 X10^6/uL (3.5-5.4) 10/31/22 05:15 Hgb 12.3 g/dL (12.0-16.0) 10/31/22 05:15 Hct 36.3 % (36.0-47.0) 10/31/22 05:15 MCV 94.0 fL (80.0-100.0) 10/31/22 05:15 MCH 31.8 pg (27.0-34.0) 10/31/22 05:15 MCHC 33.9 g/dL (33.0-35.0) 10/31/22 05:15 RDW 13.5 % (11.6-16.5) 10/31/22 05:15 Plt Count 272 X10^3/uL (150.0-450.0) 10/31/22 05:15 MPV 8.3 fL (7.4-11.0) 10/31/22 05:15 Neut % (Auto) 72.3 % (42.0-75.0) 10/31/22 05:15 Lymph % (Auto) 13.6 % (21.0-51.0) L 10/31/22 05:15 [place] % (Auto) 12.6 % (0.0-13.0) 10/31/22 05:15 Eos % (Auto) 0.3 % (0.9-2.9) L 10/31/22 05:15 Baso % (Auto) 1.2 % (0.2-1.0) H 10/31/22 05:15 Neut # (Auto) 7.2 x10^3/uL (2.2-4.8) H 10/31/22 05:15 Lymph # (Auto) 1.4 X10^3/uL (1.3-2.9) 10/31/22 05:15 [place] # (Auto) 1.3 x10^3/uL (0.3-0.8) H 10/31/22 05:15 Eos # (Auto) 0.0 x10^3/uL (0.0-0.2) 10/31/22 05:15 Baso # (Auto) 0.1 X10^3/uL (0.0-0.1) 10/31/22 05:15 Absolute Nucleated RBC 0.0 /100WBC 10/31/22 05:15 Sample Site Lrad 10/28/22 18:14 ABG pH 7.380 (7.35-7.45) 10/28/22 18:14 ABG pCO2 50.0 mmHg (35.0-45.0) H 10/28/22 18:14 ABG pO2 85.0 mmHg (80.0-100.0) 10/28/22 18:14 ABG HCO3 29.6 mmol/L (22-26) H 10/28/22 18:14 ABG O2 Saturation 96.0 % (90-100) 10/28/22 18:14 ABG Base Excess 3.5 mmol/L (-2.0-2.0) H 10/28/22 18:14 Rocky Test Pos 10/28/22 18:14 A-a Gradient 52.0 mmHg 10/28/22 18:14 FiO2 28.0 10/28/22 18:14 Blood Gas Comments Pt dolores well elj 10/28/22 18:14 Sodium 140 mmol/L (136-145) 10/31/22 05:15 Corrected Sodium TNP 10/31/22 05:15 Potassium 3.5 mmol/L (3.5-5.1) 10/31/22 05:15 Chloride 105 mmol/L (98-107) 10/31/22 05:15 Carbon Dioxide 21.7 mmol/L (21-32) 10/31/22 05:15 BUN 21 mg/dL (7-18) H 10/31/22 05:15 Creatinine 0.84 mg/dL (0.55-1.02) 10/31/22 05:15 Est GFR (MDRD) Af Amer > 60 (>60) 10/31/22 05:15 Est GFR (MDRD) Non-Af > 60 (>60) 10/31/22 05:15 Glucose 95 mg/dL (65-99) 10/31/22 05:15 Calcium 8.2 mg/dL (8.5-10.1) L 10/31/22 05:15 Corrected Calcium 9.0 mg/dL (8.5-10.1) 10/31/22 05:15 Magnesium 1.6 mg/dL (2.0-2.9) L 10/31/22 05:15 Total Bilirubin 0.80 mg/dL (0.2-1.0) 10/31/22 05:15 AST 21 Units/L (15-37) 10/31/22 05:15 ALT 11 Units/L (12-78) L 10/31/22 05:15 Alkaline Phosphatase 50 Units/L (46-116) 10/31/22 05:15 Creatine Kinase 78 Units/L (26-192) 10/28/22 12:24 Troponin I High Sens 8.4 ng/L (4.0-60.0) 10/28/22 12:24 Total Protein 5.7 g/dL (6.4-8.2) L 10/31/22 05:15 Albumin 3.0 g/dL (3.4-5.0) L 10/31/22 05:15 Globulin 2.7 g/dL (2.5-4.5) 10/31/22 05:15 Albumin/Globulin Ratio 1.1 Ratio (1.1-2.1) 10/31/22 05:15 Amylase 73 Units/L (25-115) 10/28/22 12:34 Lipase 96 Units/L (73-393) 10/28/22 12:34 Specimen Type Catherized urine 10/28/22 12:45 Urine Color Straw (YELLOW) 10/28/22 12:45 Urine Appearance Clear (CLEAR) 10/28/22 12:45 Urine pH 6.5 (5.0 - 8.0) 10/28/22 12:45 Ur Specific [place] 1.015 (1.000-1.030) 10/28/22 12:45 Urine Protein Negative (NEGATIVE) 10/28/22 12:45 Urine Glucose (UA) Negative (NEGATIVE) 10/28/22 12:45 Urine Ketones Negative (NEGATIVE) 10/28/22 12:45 Urine Blood Negative (NEGATIVE) 10/28/22 12:45 Urine Nitrite Negative (NEGATIVE) 10/28/22 12:45 Urine Bilirubin Negative (NEGATIVE) 10/28/22 12:45 Urine Urobilinogen Normal (NORMAL) 10/28/22 12:45 Ur Leukocyte Esterase Negative (NEGATIVE) 10/28/22 12:45 Plan (1) Generalized weakness: Status: Acute (2) Acute dehydration: Status: Acute (3) 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
[2022-10-31] MEDS: APRESOLINE INJ 20 MG VIAL IVP PRN (07:55)
[2022-10-31] MEDS ORDERED: APRESOLINE INJ 20 MG VIAL IVP PRN (08:31)
[2022-10-31] MEDS: [UNRECOGNIZED DRUG - OTHER] PO SCH ×4 (08:41→20:05)
[2022-10-31] MEDS: K-RIDER 10 MEQ/NS 100 ML 10 MEQ/100 ML BAG IV PRN (08:41)
[2022-10-31] MEDS: CARBIDOPA PO SCH ×4 (08:41→20:05)
[2022-10-31] MEDS: LEVODOPA PO SCH ×4 (08:41→20:05)
[2022-10-31] MEDS: COZAAR PO SCH (08:42)
[2022-10-31] MEDS: LOVENOX INJ 40 MG SYR SC SCH (08:42)
[2022-10-31] MEDS: MIRALAX POWDER (255 GRAMS BTL) PO SCH (08:43)
[2022-10-31] MEDS: LIORESAL PO SCH ×2 (08:43→20:06)
[2022-10-31] MEDS: MAGNESIUM SULFATE 1 GRAM/100 mL PREMIX 1 G/100 ML BAG IV PRN ×2 (08:44→20:17)
[2022-10-31] MEDS: NS 1,000 ML IV 1,000 ML IV SCH (13:33)
[2022-10-31] MEDS: MACROBID CAP 100 MG EXT REL PO SCH (20:06)
[2022-10-31] MEDS: CYMBALTA PO SCH (20:06)
[2022-10-31] MEDS ORDERED: NEURONTIN TAB 600 MG PO SCH (21:00)
[2022-11-01] MEDS: NORCO 7.5/325 MG TAB PO PRN ×2 (02:00→13:26)
--- NOTE | 2022-11-01 07:49 | PCM.PROG ---
Progress Note Progress Note for Day of Date of Exam: 10/31/22 Subjective Subjective: Pt is a 82 year old female past medical history of Parkinsons's Disease, Hypertension, Arthritis admitted with generalized weakness and altered mental status. This morning patient is very alert, sitting up in bed. Per daughter she is back to her baseline mentally. She does remain weak. Labs/ imaging: WBC 9.9, hemoglobin 12.3, platelets 272, sodium 140, potassium 3.5, creatinine 0.84, glucose 95. Pt has had two bowel movements yesterday. Plan: Pt is currently receiving normal saline. Resume home medications. Will restart pain medication at half frequency that she was getting at home and can take gabapentin just at night. for neuropathy. PT/OT consulted. Advance diet as tolerated. Pt has been accepted for rehab at [facility] in [place], plan on possible discharge tomorrow. Past Medical Family Social History Allergies: Allergies ciprofloxacin [From Cipro] Allergy (Verified 01/23/22 17:50) meperidine [From Demerol] Allergy (Verified 01/23/22 17:50) prochlorperazine [From Compazine] Allergy (Verified 01/23/22 17:50) Sulfa (Sulfonamide Antibiotics) [SULFA] Allergy (Verified 01/23/22 17:50) Review of Systems ROS changes noted: see HPI Vital Signs and I&O's Vital Signs: Vital Signs Temperature 98.9 F Temperature 98.5 F Pulse Rate [Left Brachial] 90 Pulse Rate [Left Brachial] 97 Respiratory Rate 18 Respiratory Rate 14 Respiratory Rate 20 Respiratory Rate 18 Blood Pressure [Right Arm] 131/64 Blood Pressure [Right Arm] 118/59 O2 Sat by Pulse Oximetry 94 O2 Sat by Pulse Oximetry 97 11/01/22 04:00 11/01/22 05:00 Temperature 98.9 F Temperature Source Oral Pulse Rate [Left Brachial] 90 Pulse Assessment Method [Left Brachial] Dinamap Respiratory Rate 18 O2 Sat by Pulse Oximetry 94 L Blood Pressure [Right Arm] 131/64 Blood Pressure Mean [Right Arm] 86 Blood Pressure Source [Right Arm] Automatic Cuff Blood Pressure Position [Right Arm] Semi Florian's Weight 134 lb 4.184 oz Intake and Output: Intake & Output 10/29/22 10/30/22 10/31/22 11/01/22 23:59 23:59 23:59 23:59 Intake Total 1899 / 1899 1079 / 1079 2216 / 2216 752 / 752 Output Total 1025 / 1025 1150 / 1150 800 / 800 1150 / 1150 Balance 874 / 874 -71 / -71 1416 / 1416 -398 / -398 Physical Exam Oriented: Not Oriented Eyes: Normal Nose: Normal Respiratory: Normal Cardiovascular: Normal Auscultation: Bowel Sounds: Normal Tenderness: Normal Skin: Decreased Turgur Musculoskeletal: Motor Deficit Psychiatric: Normal Mood Description: Calm Affect: Normal Speech Pattern: Appropriate Laboratory and Diagnostics Result Diagrams: 10/31/22 05:15 10/31/22 05:15 Labs: Laboratory WBC 9.9 X10^3/uL (3.6-10.0) 10/31/22 05:15 RBC 3.87 X10^6/uL (3.5-5.4) 10/31/22 05:15 Hgb 12.3 g/dL (12.0-16.0) 10/31/22 05:15 Hct 36.3 % (36.0-47.0) 10/31/22 05:15 MCV 94.0 fL (80.0-100.0) 10/31/22 05:15 MCH 31.8 pg (27.0-34.0) 10/31/22 05:15 MCHC 33.9 g/dL (33.0-35.0) 10/31/22 05:15 RDW 13.5 % (11.6-16.5) 10/31/22 05:15 Plt Count 272 X10^3/uL (150.0-450.0) 10/31/22 05:15 MPV 8.3 fL (7.4-11.0) 10/31/22 05:15 Neut % (Auto) 72.3 % (42.0-75.0) 10/31/22 05:15 Lymph % (Auto) 13.6 % (21.0-51.0) L 10/31/22 05:15 [place] % (Auto) 12.6 % (0.0-13.0) 10/31/22 05:15 Eos % (Auto) 0.3 % (0.9-2.9) L 10/31/22 05:15 Baso % (Auto) 1.2 % (0.2-1.0) H 10/31/22 05:15 Neut # (Auto) 7.2 x10^3/uL (2.2-4.8) H 10/31/22 05:15 Lymph # (Auto) 1.4 X10^3/uL (1.3-2.9) 10/31/22 05:15 [place] # (Auto) 1.3 x10^3/uL (0.3-0.8) H 10/31/22 05:15 Eos # (Auto) 0.0 x10^3/uL (0.0-0.2) 10/31/22 05:15 Baso # (Auto) 0.1 X10^3/uL (0.0-0.1) 10/31/22 05:15 Absolute Nucleated RBC 0.0 /100WBC 10/31/22 05:15 Sample Site Lrad 10/28/22 18:14 ABG pH 7.380 (7.35-7.45) 10/28/22 18:14 ABG pCO2 50.0 mmHg (35.0-45.0) H 10/28/22 18:14 ABG pO2 85.0 mmHg (80.0-100.0) 10/28/22 18:14 ABG HCO3 29.6 mmol/L (22-26) H 10/28/22 18:14 ABG O2 Saturation 96.0 % (90-100) 10/28/22 18:14 ABG Base Excess 3.5 mmol/L (-2.0-2.0) H 10/28/22 18:14 [place] Test Pos 10/28/22 18:14 A-a Gradient 52.0 mmHg 10/28/22 18:14 FiO2 28.0 10/28/22 18:14 Blood Gas Comments Pt dolores well elj 10/28/22 18:14 Sodium 140 mmol/L (136-145) 10/31/22 05:15 Corrected Sodium TNP 10/31/22 05:15 Potassium 3.5 mmol/L (3.5-5.1) 10/31/22 05:15 Chloride 105 mmol/L (98-107) 10/31/22 05:15 Carbon Dioxide 21.7 mmol/L (21-32) 10/31/22 05:15 BUN 21 mg/dL (7-18) H 10/31/22 05:15 Creatinine 0.84 mg/dL (0.55-1.02) 10/31/22 05:15 Est GFR (MDRD) Af Amer > 60 (>60) 10/31/22 05:15 Est GFR (MDRD) Non-Af > 60 (>60) 10/31/22 05:15 Glucose 95 mg/dL (65-99) 10/31/22 05:15 Calcium 8.2 mg/dL (8.5-10.1) L 10/31/22 05:15 Corrected Calcium 9.0 mg/dL (8.5-10.1) 10/31/22 05:15 Magnesium 1.6 mg/dL (2.0-2.9) L 10/31/22 05:15 Total Bilirubin 0.80 mg/dL (0.2-1.0) 10/31/22 05:15 AST 21 Units/L (15-37) 10/31/22 05:15 ALT 11 Units/L (12-78) L 10/31/22 05:15 Alkaline Phosphatase 50 Units/L (46-116) 10/31/22 05:15 Creatine Kinase 78 Units/L (26-192) 10/28/22 12:24 Troponin I High Sens 8.4 ng/L (4.0-60.0) 10/28/22 12:24 Total Protein 5.7 g/dL (6.4-8.2) L 10/31/22 05:15 Albumin 3.0 g/dL (3.4-5.0) L 10/31/22 05:15 Globulin 2.7 g/dL (2.5-4.5) 10/31/22 05:15 Albumin/Globulin Ratio 1.1 Ratio (1.1-2.1) 10/31/22 05:15 Amylase 73 Units/L (25-115) 10/28/22 12:34 Lipase 96 Units/L (73-393) 10/28/22 12:34 Specimen Type Catherized urine 10/28/22 12:45 Urine Color Straw (YELLOW) 10/28/22 12:45 Urine Appearance Clear (CLEAR) 10/28/22 12:45 Urine pH 6.5 (5.0 - 8.0) 10/28/22 12:45 Ur Specific [place] 1.015 (1.000-1.030) 10/28/22 12:45 Urine Protein Negative (NEGATIVE) 10/28/22 12:45 Urine Glucose (UA) Negative (NEGATIVE) 10/28/22 12:45 Urine Ketones Negative (NEGATIVE) 10/28/22 12:45 Urine Blood Negative (NEGATIVE) 10/28/22 12:45 Urine Nitrite Negative (NEGATIVE) 10/28/22 12:45 Urine Bilirubin Negative (NEGATIVE) 10/28/22 12:45 Urine Urobilinogen Normal (NORMAL) 10/28/22 12:45 Ur Leukocyte Esterase Negative (NEGATIVE) 10/28/22 12:45 Plan (1) Generalized weakness: Status: Acute (2) Acute dehydration: Status: Acute (3) 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
[2022-11-01 07:59] VITALS: RESP 20; TEMP 98.6
[2022-11-01] MEDS: NS 1,000 ML IV 1,000 ML IV SCH ×2 (08:29→13:59)
[2022-11-01] MEDS: COZAAR PO SCH (08:31)
[2022-11-01] MEDS: CARBIDOPA PO SCH ×2 (08:31→11:33)
[2022-11-01] MEDS: LEVODOPA PO SCH ×2 (08:31→11:33)
[2022-11-01] MEDS: LOVENOX INJ 40 MG SYR SC SCH (08:31)
[2022-11-01] MEDS: [UNRECOGNIZED DRUG - OTHER] PO SCH ×2 (08:31→11:33)
[2022-11-01] MEDS: LIORESAL PO SCH (08:31)
[2022-11-01] MEDS ORDERED: MAG-OX TAB PO SCH (09:00)
[2022-11-01] MEDS ORDERED: MIRALAX POWDER (1 DOSE 17 G) PO SCH (09:00)
[2022-11-01] MEDS ORDERED: K-DUR TAB 20 MEQ PO SCH (09:00)
[2022-11-01] MEDS: TYLENOL 325 MG TAB PO PRN (11:33)
[2022-11-01 12:26] VITALS: BP 153/78; PULSE 95; O2SAT 94
== END 2022-11-01 14:15 | DRG 948 ==
LOC: ER 11:56 → MED/SURG 11:56
PROVIDERS: ADMIT Family Medicine; ATTEND Family Medicine

== ENCOUNTER 2023-06-17 02:43 | Inpatient (IN) ==
--- NOTE | 2023-06-17 02:52 | DR.AMS ---
HPI Time Seen Time Seen by Provider: 06/17/23 02:52 COVID-19 Coronavirus risk:travel/contact w/high risk person: No Has patient experienced Coronavirus symptoms: No Reviewed Nurses Notes Reviewed: Yes Source History Provided: Patient and Family Member Mode of Arrival Mode of Arrival: Ambulatory Timing Onset of Chief Complaint: 06/16/23 PMH PMH Past Medical History: Arthritis, Dyslipidemia, GERD and Hypertension Past Surgical History: Yes Surgical History: PLAYGROUND ATTENDANT Surgery, Hysterectomy, Joint Replacement, Ortho Surgery and Other Family History Family Medical History: Hypertension Social History Do you use any recreational Drugs:: No PE Vitals Vital Signs: Temp Pulse Resp BP Pulse Ox O2 Del Method 06/17/23 05:15 78 14 95 06/17/23 05:00 153/80 06/17/23 05:00 77 13 95 06/17/23 04:44 151/85 06/17/23 04:44 82 16 94 L 06/17/23 04:30 80 20 95 06/17/23 04:15 83 17 95 06/17/23 04:00 82 22 94 L 06/17/23 03:45 83 14 93 L 06/17/23 03:42 87 21 93 L 06/17/23 03:16 85 13 95 06/17/23 03:08 85 13 93 L 06/17/23 02:44 98.8 F 87 16 143/65 92 L Room Air General Limitations: Altered Mental Status General Appearance: Alert and In No Apparent Distress Head Head Exam: Normal Inspection and Atraumatic Head Exam Physical: Other (None noted.) Eyes Eye exam: EOMI; negative Scleral Icterus or Conjunctival Injection ENT ENT Exam: Normal Exam, Normal Oropharynx, Normal External Ear Exam and TM's Normal Bilaterally External Ear Exam: Normal External Inspection, Auricular Hematoma and Auricular Trauma; negative Mastoid Tenderness TM/Canal Exam: Bilateral: Normal Nose Exam: Normal Nose Exam Throat Exam: Normal Inspection; negative Tonsillar Erythema, Tonsillomegaly or Tonsillar Exudate Neck Neck Exam: Trachea Midline and Other (Contracture neck.) Chest Chest Inspection: Symmetric Chest Wall Rise Respiratory Respiratory Exam: Normal Lung Sounds Bilat; negative Accessory Muscle Use, Chest Wall Tenderness or Respiratory Distress Respiratory Exam: Bilateral: Rhonchi Cardiovascular Cardiovascular Exam: Regular Rate, Normal Rhythm and Normal Heart Sounds; negative Systolic Murmur or Diastolic Murmur Abdominal Exam Abdominal Exam: Normal Inspection, Normal Bowel Sounds and Soft; negative Tenderness Extremities Extremities Exam: Other (distal foot and toe discollored. Pules present.); negative Edema Back Back Exam: Normal Inspection, (R) CVA Tenderness and Paraspinal Tenderness; negative (L) CVA Tenderness Neurological Neurological Exam: Alert and Oriented X3 Patient Oriented To: Person, Place and Time Speech: Other (Speech slow.) Cranial Nerve Exam: Gag reflex (XI): Normal Psychological Psychiatric Exam: Normal Affect and Normal Mood Skin Skin Exam: Normal Color; negative Rash MDM Differential Diagnosis Metabolic: Dehydration, Hypercalcemia, Hypernatremia, Hypoglycemia and Hyponatremia Structural: CVA and Mass Lesion Infectious: Sepsis and UTI Environmental: Hyperthermia and Hypothermia COURSE Education/Counseling Education/Counseling: Patient and Family ROR Labs Reviewed 06/24/23 05:24 06/24/23 05:24 Laboratory: 06/17/23 03:20 Blood Blood Culture - Final 06/17/23 03:10 Blood Blood Culture - Final 06/17/23 03:07 Urine,Catheterized Urine Culture - Final Enterococcus Faecalis WBC 5.3 X10^3/uL (3.6-10.0) 06/18/23 04:33 RBC 3.82 X10^6/uL (3.5-5.4) 06/18/23 04:33 Hgb 12.1 g/dL (12.0-16.0) 06/18/23 04:33 Hct 36.4 % (36.0-47.0) 06/18/23 04:33 MCV 95.3 fL (80.0-100.0) 06/18/23 04:33 MCH 31.6 pg (27.0-34.0) 06/18/23 04:33 MCHC 33.1 g/dL (33.0-35.0) 06/18/23 04:33 RDW 13.7 % (11.6-16.5) 06/18/23 04:33 Plt Count 225 X10^3/uL (150.0-450.0) 06/18/23 04:33 MPV 8.4 fL (7.4-11.0) 06/18/23 04:33 Neut % (Auto) 66.8 % (42.0-75.0) 06/18/23 04:33 Lymph % (Auto) 15.0 % (21.0-51.0) L 06/18/23 04:33 [place] % (Auto) 15.6 % (0.0-13.0) H 06/18/23 04:33 Eos % (Auto) 1.9 % (0.9-2.9) 06/18/23 04:33 Baso % (Auto) 0.7 % (0.2-1.0) 06/18/23 04:33 Neut # (Auto) 3.5 x10^3/uL (2.2-4.8) 06/18/23 04:33 Lymph # (Auto) 0.8 X10^3/uL (1.3-2.9) L 06/18/23 04:33 [place] # (Auto) 0.8 x10^3/uL (0.3-0.8) 06/18/23 04:33 Eos # (Auto) 0.1 x10^3/uL (0.0-0.2) 06/18/23 04:33 Baso # (Auto) 0.0 X10^3/uL (0.0-0.1) 06/18/23 04:33 Absolute Nucleated RBC 0.1 /100WBC 06/18/23 04:33 Sodium 141 mmol/L (136-145) 06/18/23 04:33 Corrected Sodium TNP 06/18/23 04:33 Potassium 3.6 mmol/L (3.5-5.1) 06/18/23 04:33 Chloride 104 mmol/L (98-107) 06/18/23 04:33 Carbon Dioxide 28.8 mmol/L (21-32) 06/18/23 04:33 BUN 22 mg/dL (7-18) H 06/18/23 04:33 Creatinine 1.11 mg/dL (0.55-1.02) H 06/18/23 04:33 Est GFR (MDRD) Af Amer > 60 (>60) 06/18/23 04:33 Est GFR (MDRD) Non-Af 50 (>60) L 06/18/23 04:33 Glucose 90 mg/dL (65-99) 06/18/23 04:33 Lactic Acid 0.6 mmol/L (0.4-2.0) 06/17/23 03:10 Calcium 8.8 mg/dL (8.5-10.1) 06/18/23 04:33 Corrected Calcium 9.5 mg/dL (8.5-10.1) 06/18/23 04:33 Magnesium 1.8 mg/dL (2.0-2.9) L 06/18/23 04:33 Total Bilirubin 0.60 mg/dL (0.2-1.0) 06/18/23 04:33 AST 17 Units/L (15-37) 06/18/23 04:33 ALT 6 Units/L (12-78) L 06/18/23 04:33 Alkaline Phosphatase 57 Units/L (46-116) 06/18/23 04:33 Creatine Kinase 76 Units/L (26-192) 06/17/23 03:10 Troponin I High Sens 8.1 ng/L (4.0-60.0) 06/17/23 03:10 B-Natriuretic Peptide 74.3 pg/mL (0-79) 06/17/23 03:10 Total Protein 6.4 g/dL (6.4-8.2) 06/18/23 04:33 Albumin 3.1 g/dL (3.4-5.0) L 06/18/23 04:33 Globulin 3.3 g/dL (2.5-4.5) 06/18/23 04:33 Albumin/Globulin Ratio 0.9 Ratio (1.1-2.1) L 06/18/23 04:33 Specimen Type Catherized urine 06/17/23 03:07 Urine Color Yellow (YELLOW) 06/17/23 03:07 Urine Appearance Clear (CLEAR) 06/17/23 03:07 Urine pH 6.5 (5.0 - 8.0) 06/17/23 03:07 Ur Specific [place] 1.015 (1.000-1.030) 06/17/23 03:07 Urine Protein Negative (NEGATIVE) 06/17/23 03:07 Urine Glucose (UA) Negative (NEGATIVE) 06/17/23 03:07 Urine Ketones Negative (NEGATIVE) 06/17/23 03:07 Urine Blood Negative (NEGATIVE) 06/17/23 03:07 Urine Nitrite Negative (NEGATIVE) 06/17/23 03:07 Urine Bilirubin Negative (NEGATIVE) 06/17/23 03:07 Urine Urobilinogen Normal (NORMAL) 06/17/23 03:07 Ur Leukocyte Esterase 1+ (NEGATIVE) 06/17/23 03:07 Urine RBC 0-2 /HPF (0-3) 06/17/23 03:07 Urine WBC 10-20 /HPF (0-5) A 06/17/23 03:07 Ur Squamous Epith Cells Rare /HPF (NEGATIVE) 06/17/23 03:07 Urine Bacteria 1+ /HPF (NEGATIVE) 06/17/23 03:07 Hyaline Casts Few /LPF (NEGATIVE) 06/17/23 03:07 Ur Culture Indicated? Yes/culture set up 06/17/23 03:07 Resp Viral Panel (PCR) See scanned report 06/17/23 06:20 Opioid Opioid Risk Tool Age (Carl box if 16-45): No History of Preadolescent Sexual Abuse: No Total: 0 Total Score Risk Category: Low Risk Copyright: Len GIRFFIN predicting aberrant behaviors Discharge Plan Diagnosis Discharge Problem: UTI (urinary tract infection), Acute dehydration Altered mental state Qualifiers: Altered mental status type: transient alteration of awareness Qualified Code(s): R40.4 - Transient alteration of awareness Discharge Plan Patient Disposition: ADMITTED INPATIENT Condition: Stable Orders to Discharge Patient Discharge Orders: Discharge (Routine); Ordered 06/24/23 Ordered By: Calderon Paul
[2023-06-17 03:30] LABS: BASOPHILS % (AUTO) 0.5 % (0.2-1.0); EOSINOPHILS # (AUTO) 0.2 x10^3/uL (0.0-0.2); EOSINOPHILS % (AUTO) 3.4 % (0.9-2.9); HEMATOCRIT 36.4 % (36.0-47.0); LYMPHOCYTES # (AUTO) 1.4 X10^3/uL (1.3-2.9); LYMPHOCYTES % (AUTO) 22.3 % (21.0-51.0); MEAN CORPUSCULAR HEMOGLOBIN 31.4 pg (27.0-34.0); MEAN CORPUSCULAR HGB CONC 33.1 g/dL (33.0-35.0); MEAN CORPUSCULAR VOLUME 94.9 fL (80.0-100.0); MEAN PLATELET VOLUME 7.8 fL (7.4-11.0); MONOCYTES # (AUTO) 0.9 x10^3/uL (0.3-0.8); MONOCYTES % (AUTO) 14.7 % (0.0-13.0); NEUTROPHILS # (AUTO) 3.6 x10^3/uL (2.2-4.8); NEUTROPHILS % (AUTO) 59.1 % (42.0-75.0); PLATELET COUNT 244 X10^3/uL (150.0-450.0); RED BLOOD COUNT 3.84 X10^6/uL (3.5-5.4); RED CELL DISTRIBUTION WIDTH 13.9 % (11.6-16.5); WHITE BLOOD COUNT 6.1 X10^3/uL (3.6-10.0)
[2023-06-17 03:33] LABS: BILIRUBIN,URINE NEGATIVE (NEGATIVE); BLOOD/HEMOGLOBIN,URINE NEGATIVE (NEGATIVE); GLUCOSE, URINE NEGATIVE (NEGATIVE); KETONES,URINE NEGATIVE (NEGATIVE); LEUKOCYTE ESTERASE ,URINE 1+ (NEGATIVE); NITRITES,URINE NEGATIVE (NEGATIVE); PH,URINE 6.5 (5.0 - 8.0); PROTEIN,URINE NEGATIVE (NEGATIVE); UROBILINOGEN,URINE NORMAL (NORMAL)
[2023-06-17 03:42] LABS: ALBUMIN 3.5 g/dL (3.4-5.0); ALKALINE PHOSPHATASE 65 Units/L (46-116); ASPARTATE AMINO TRANSFERASE 16 Units/L (15-37); BLOOD UREA NITROGEN 34 mg/dL (7-18); CALCIUM 9.1 mg/dL (8.5-10.1); CARBON DIOXIDE 32.2 mmol/L (21-32); CHLORIDE 101 mmol/L (98-107); CREATINE KINASE 76 Units/L (26-192); CREATININE 1.43 mg/dL (0.55-1.02); GLUCOSE 101 mg/dL (65-99); POTASSIUM 3.8 mmol/L (3.5-5.1); SODIUM 137 mmol/L (136-145); TOTAL PROTEIN 6.9 g/dL (6.4-8.2); eGFR NON BLACK RACES 37 (>60)
[2023-06-17 03:42] LABS: APPEARANCE,URINE CLEAR (CLEAR); BACTERIA,URINE 1+ /HPF (NEGATIVE); COLOR,URINE YELLOW (YELLOW); HYALINE CASTS, URINE FEW /LPF (NEGATIVE); RBC,URINE 0-2 /HPF (0-3); SQUAMOUS EPITHELIAL CELL,UR RARE /HPF (NEGATIVE)
[2023-06-17 03:53] LABS: ALANINE AMINOTRANSFERASE < 6 Units/L (12-78)
--- NOTE | 2023-06-17 03:56 | EKG ---
Test Reason : HTN Blood Pressure : */* mmHG Vent. Rate : 83 BPM Atrial Rate : 83 BPM P-R Int : 124 ms QRS Dur : 78 ms QT Int : 376 ms P-R-T Axes : -4 0 25 degrees QTc Int : 441 ms Normal sinus rhythm Normal ECG No previous ECGs available Confirmed by Juventino Iqbal ([id number]) on 06/18/2023 12:32:34 PM Referred By: Confirmed By: Juventino Iqbal
--- NOTE | 2023-06-17 04:21 | CT ---
PROCEDURE: CT Head without IV Contrast.HISTORY: Altered mental status.TECHNIQUE: Axial images were performed through the head without the administration of IV contrast with multiplanar reformations . Dose reduction techniques including Automated Exposure Control (AEC) and adjustment of mA and kV were utilized .COMPARISON: 11/29/2021.TECHNICAL QUALITY: Satisfactory.FINDINGS:Brain shows no mass, hemorrhage, or acute stroke.Mild periventricular old micro ischemic changes. Mild diffuse cerebral and moderate diffuse cerebellar atrophy.Ventricles are normal size for patient's age.No acute skull or scalp abnormality.Visualized sinuses and mastoids are clear.IMPRESSION:1. No acute intracranial abnormality.2. Senescent changes.THIS IS AN ELECTRONICALLY VERIFIED FINAL REPORT06/17/2023 4:18 AM - Electronically signed by Pacheco Weaver MD
[2023-06-17] MEDS ORDERED: NS 1,000 ML IV 1,000 ML ONE (05:14)
[2023-06-17] MEDS ORDERED: ROCEPHIN VIAL 1 GRAM ONE (05:14)
[2023-06-17] MEDS: NS 1,000 ML IV 1,000 ML IV SCH ×3 (05:20→16:01)
[2023-06-17] MEDS: ROCEPHIN VIAL 1 GRAM 1 G in NS 100 ML IV 100 ML IV ONE (05:21)
--- NOTE | 2023-06-17 05:35 | RAD ---
EXAM:CHEST, 1 VIEWHISTORY:ems dispatched to unresponsive but breathing possible over sedation pt c/o on arrival to ED speaking to staff when questions asked pt c/o pain all over but worse in neck ; HTN, GERD, ARTHRITIS, PARKINSONS SX: HYST, SPINAL STIMULATOR, CATARACTCOMPARISON:10/29/2022FINDINGS:Th e cardiomediastinal silhouette is stable given rotation. Intrathecal stimulator wires overlying the mediastinum.Scattered bilateral opacities, worse on the right. No pneumothorax or effusion.No acute osseous abnormality.IMPRESSION:Scattered bilateral opacities which could be due to positioning, atelectasis, edema, or pneumonia.THIS IS AN ELECTRONICALLY VERIFIED FINAL REPORT06/17/2023 5:32 AM - Electronically signed by Richie Tabares MD
[2023-06-17 07:37] VITALS: BMI 26.9
[2023-06-17] MEDS: LOVENOX INJ 30 MG SYR SC SCH (09:01)
[2023-06-17] MEDS ORDERED: PATIENT'S HOME MEDICATION PO SCH (12:00)
[2023-06-17] MEDS: PATIENT'S HOME MEDICATION PO SCH (13:13)
[2023-06-17] MEDS ORDERED: RYTARY PO SCH (14:00)
[2023-06-17] MEDS: MAGIC MOUTHWASH (Orig. Formula) MT PRN (15:48)
[2023-06-17] MEDS: LASIX IVP SCH (16:38)
--- NOTE | 2023-06-17 19:53 | DR.H&P ---
H&P History & Physical for Day of: H&P Date: 06/17/23 Chief Complaint Chief Complaint: Altered mental status and poorly responsive Allergies Allergies Allergy/AdvReac Type Severity Reaction Status Date / Time ciprofloxacin [From Cipro] Allergy Verified 01/23/22 17:50 meperidine [From Demerol] Allergy Verified 01/23/22 17:50 prochlorperazine Allergy Verified 01/23/22 17:50 [From Compazine] Sulfa (Sulfonamide Allergy Verified 01/23/22 17:50 Antibiotics) [SULFA] History of Present Illness History of Present Illness: This is a pleasant 83-year-old white female well- known to me. She has some confusion this morning but her tells me that last night around 10 PM she did not want to get up from the chair and go to bed. After some time, he came back and checked on her but found that she was lethargic and would not answer his questions. Afterward, he called EMS, and they came to pick the patient up and brought her to the [facility] emergency department, where they worked her up and found that she had mild dehydration and a urinary tract infection. She has a history of multiple UTIs in the past and she has a history of Parkinson's also. She was started on IV Rocephin and given IV fluid and we subsequently admitted her to the floor for IV hydration and IV antibiotic therapy. Her urine has been sent off for culture and sensitivity and we will follow-up with the results of that when available. I am also going to restart her Parkinson's disease medication this morning which is carbidopalevodopa. The patient has chronic pain and she uses a fentanyl patch at 25 mcg/h changed every 3 days. In the meantime, we will continue her on slow IV hydration and IV Rocephin. Past Medical History Past Medical History: Arthritis, Dyslipidemia, GERD and Hypertension Past Surgical History Surgical History: JACQUARD CARD LACER Surgery, Hysterectomy, Joint Replacement and Ortho Surgery Family History Family Medical History: Hypertension Social History Does patient currently use any type of tobacco product: No Have you used tobacco products in the last 12 months: No Type of Tobacco Use: None How many years tobacco product used: 0 Does any household member use tobacco: No Alcohol Use: None Drug Use: None Medications Home Medications: Home Medications Medication Instructions Recorded Confirmed Type [place] 1 cap PO DAILY 10/29/22 06/17/23 History apixaban 5 mg tablet (Eliquis) 5 mg PO 1XD 06/17/23 06/17/23 History carbidopa ER 36.25 mg-levodopa 145 1 cap PO 3XD 06/17/23 06/17/23 History mg capsule,extended release (Rytary) cholecalciferol (vitamin D3) 100 100 mcg PO DAILY 06/17/23 06/17/23 History mcg (4,000 unit) capsule duloxetine 30 mg capsule,delayed 20 mg PO BID 06/17/23 06/17/23 History release furosemide 40 mg tablet 20 tab PO QDAY PRN swelling 06/17/23 06/17/23 History glycopyrrolate 2 mg tablet 2 mg PO BID 06/17/23 06/17/23 History magnesium oxide 400 mg (241.3 mg 400 mg PO QDAY 06/17/23 06/17/23 History magnesium) tablet nitrofurantoin 100 mg PO 1XD 06/17/23 06/17/23 History monohydrate/macrocrystals 100 mg capsule Labs 06/17/23 03:10 06/17/23 03:10 Labs: Laboratory WBC 6.1 X10^3/uL (3.6-10.0) 06/17/23 03:10 RBC 3.84 X10^6/uL (3.5-5.4) 06/17/23 03:10 Hgb 12.0 g/dL (12.0-16.0) 06/17/23 03:10 Hct 36.4 % (36.0-47.0) 06/17/23 03:10 MCV 94.9 fL (80.0-100.0) 06/17/23 03:10 MCH 31.4 pg (27.0-34.0) 06/17/23 03:10 MCHC 33.1 g/dL (33.0-35.0) 06/17/23 03:10 RDW 13.9 % (11.6-16.5) 06/17/23 03:10 Plt Count 244 X10^3/uL (150.0-450.0) 06/17/23 03:10 MPV 7.8 fL (7.4-11.0) 06/17/23 03:10 Neut % (Auto) 59.1 % (42.0-75.0) 06/17/23 03:10 Lymph % (Auto) 22.3 % (21.0-51.0) 06/17/23 03:10 [place] % (Auto) 14.7 % (0.0-13.0) H 06/17/23 03:10 Eos % (Auto) 3.4 % (0.9-2.9) H 06/17/23 03:10 Baso % (Auto) 0.5 % (0.2-1.0) 06/17/23 03:10 Neut # (Auto) 3.6 x10^3/uL (2.2-4.8) 06/17/23 03:10 Lymph # (Auto) 1.4 X10^3/uL (1.3-2.9) 06/17/23 03:10 [place] # (Auto) 0.9 x10^3/uL (0.3-0.8) H 06/17/23 03:10 Eos # (Auto) 0.2 x10^3/uL (0.0-0.2) 06/17/23 03:10 Baso # (Auto) 0.0 X10^3/uL (0.0-0.1) 06/17/23 03:10 Absolute Nucleated RBC 0.0 /100WBC 06/17/23 03:10 Sodium 137 mmol/L (136-145) 06/17/23 03:10 Corrected Sodium TNP 06/17/23 03:10 Potassium 3.8 mmol/L (3.5-5.1) 06/17/23 03:10 Chloride 101 mmol/L (98-107) 06/17/23 03:10 Carbon Dioxide 32.2 mmol/L (21-32) H 06/17/23 03:10 BUN 34 mg/dL (7-18) H 06/17/23 03:10 Creatinine 1.43 mg/dL (0.55-1.02) H 06/17/23 03:10 Est GFR (MDRD) Af Amer 45 (>60) L 06/17/23 03:10 Est GFR (MDRD) Non-Af 37 (>60) L 06/17/23 03:10 Glucose 101 mg/dL (65-99) H 06/17/23 03:10 Lactic Acid 0.6 mmol/L (0.4-2.0) 06/17/23 03:10 Calcium 9.1 mg/dL (8.5-10.1) 06/17/23 03:10 Corrected Calcium TNP 06/17/23 03:10 Magnesium 2.2 mg/dL (2.0-2.9) 06/17/23 03:10 Total Bilirubin 0.60 mg/dL (0.2-1.0) 06/17/23 03:10 AST 16 Units/L (15-37) 06/17/23 03:10 ALT < 6 Units/L (12-78) L 06/17/23 03:10 Alkaline Phosphatase 65 Units/L (46-116) 06/17/23 03:10 Creatine Kinase 76 Units/L (26-192) 06/17/23 03:10 Troponin I High Sens 8.1 ng/L (4.0-60.0) 06/17/23 03:10 B-Natriuretic Peptide 74.3 pg/mL (0-79) 06/17/23 03:10 Total Protein 6.9 g/dL (6.4-8.2) 06/17/23 03:10 Albumin 3.5 g/dL (3.4-5.0) 06/17/23 03:10 Globulin 3.4 g/dL (2.5-4.5) 06/17/23 03:10 Albumin/Globulin Ratio 1.0 Ratio (1.1-2.1) L 06/17/23 03:10 Specimen Type Catherized urine 06/17/23 03:07 Urine Color Yellow (YELLOW) 06/17/23 03:07 Urine Appearance Clear (CLEAR) 06/17/23 03:07 Urine pH 6.5 (5.0 - 8.0) 06/17/23 03:07 Ur Specific [place] 1.015 (1.000-1.030) 06/17/23 03:07 Urine Protein Negative (NEGATIVE) 06/17/23 03:07 Urine Glucose (UA) Negative (NEGATIVE) 06/17/23 03:07 Urine Ketones Negative (NEGATIVE) 06/17/23 03:07 Urine Blood Negative (NEGATIVE) 06/17/23 03:07 Urine Nitrite Negative (NEGATIVE) 06/17/23 03:07 Urine Bilirubin Negative (NEGATIVE) 06/17/23 03:07 Urine Urobilinogen Normal (NORMAL) 06/17/23 03:07 Ur Leukocyte Esterase 1+ (NEGATIVE) 06/17/23 03:07 Urine RBC 0-2 /HPF (0-3) 06/17/23 03:07 Urine WBC 10-20 /HPF (0-5) A 06/17/23 03:07 Ur Squamous Epith Cells Rare /HPF (NEGATIVE) 06/17/23 03:07 Urine Bacteria 1+ /HPF (NEGATIVE) 06/17/23 03:07 Hyaline Casts Few /LPF (NEGATIVE) 06/17/23 03:07 Ur Culture Indicated? Yes/culture set up 06/17/23 03:07 Review of Systems Constitutional: Other (Unable to obtain a review of systems as patient is not communicating at this time.) Physical Exam Vital Signs: Vital Signs Temperature 97.9 F Temperature 98.2 F Pulse Rate [Brachial] 79 Pulse Rate [Brachial] 80 Respiratory Rate 20 Respiratory Rate 20 Blood Pressure [Left Arm] 145/69 Blood Pressure [Left Arm] 177/84 O2 Sat by Pulse Oximetry 96 O2 Sat by Pulse Oximetry 98 Oriented: Not Oriented and Unable to test Eyes: Normal Ear: Normal Nose: Normal Respiratory: Clear Throughout Cardiovascular: Normal Auscultation: Bowel Sounds: Normal Palpation: Normal Tenderness: Normal Skin: Decreased Turgur Speech Pattern: Unclear Assessment/Plan (1) Altered mental state: Qualifiers: Altered mental status type: transient alteration of awareness Qualified Code(s): R40.4 - Transient alteration of awareness Status: Acute Plan: We will treat the patient's dehydration with IV fluid and her UTI with IV Rocephin and I think this should help return her almost 8 to her normal baseline. (2) UTI (urinary tract infection): Status: Acute Plan: Continue IV Rocephin at this time. Follow-up urine culture and sensitivity when available. (3) Acute dehydration: Status: Acute Plan: Slow IV hydration. (4) Parkinsons disease: Status: Chronic Plan: We will resume the patient's carbidopalevodopa. (5) Primary hypertension: Status: Chronic Plan: Monitor the patient's blood pressure daily. We will resume her losartan 25 mg daily. (6) On potassium wasting diuretic therapy: Status: Chronic Plan: Monitor daily potassiums. We will hold the patient's home furosemide at this time. (7) Discoloration of skin of foot: Narrative Support Text: The patient has a chronic bluish color to her right foot midway the foot to the end of her toes. This is chronic and secondary to poor circulation. Status: Acute Plan: Monitor patient's right lower extremity/foot for worsening signs of peripheral arterial disease. Review H&P Reviewed: Yes Patient was examined?: Yes
[2023-06-17] MEDS: LIORESAL PO SCH (20:53)
[2023-06-17] MEDS: NEURONTIN CAP 300 MG PO SCH (20:53)
[2023-06-17] MEDS: LEVODOPA PO SCH (20:56)
[2023-06-17] MEDS: CARBIDOPA PO SCH (20:56)
[2023-06-17] MEDS: [UNRECOGNIZED DRUG - OTHER] PO SCH (20:56)
[2023-06-17] MEDS: CYMBALTA PO SCH (22:53)
[2023-06-18 05:23] LABS: BASOPHILS % (AUTO) 0.7 % (0.2-1.0); EOSINOPHILS # (AUTO) 0.1 x10^3/uL (0.0-0.2); EOSINOPHILS % (AUTO) 1.9 % (0.9-2.9); HEMATOCRIT 36.4 % (36.0-47.0); HEMOGLOBIN 12.1 g/dL (12.0-16.0); LYMPHOCYTES # (AUTO) 0.8 X10^3/uL (1.3-2.9); MEAN CORPUSCULAR HEMOGLOBIN 31.6 pg (27.0-34.0); MEAN CORPUSCULAR HGB CONC 33.1 g/dL (33.0-35.0); MEAN CORPUSCULAR VOLUME 95.3 fL (80.0-100.0); MEAN PLATELET VOLUME 8.4 fL (7.4-11.0); MONOCYTES # (AUTO) 0.8 x10^3/uL (0.3-0.8); MONOCYTES % (AUTO) 15.6 % (0.0-13.0); NEUTROPHILS # (AUTO) 3.5 x10^3/uL (2.2-4.8); NEUTROPHILS % (AUTO) 66.8 % (42.0-75.0); PLATELET COUNT 225 X10^3/uL (150.0-450.0); RED BLOOD COUNT 3.82 X10^6/uL (3.5-5.4); RED CELL DISTRIBUTION WIDTH 13.7 % (11.6-16.5); WHITE BLOOD COUNT 5.3 X10^3/uL (3.6-10.0)
[2023-06-18 05:45] LABS: ALANINE AMINOTRANSFERASE 6 Units/L (12-78); ALBUMIN 3.1 g/dL (3.4-5.0); ALKALINE PHOSPHATASE 57 Units/L (46-116); ASPARTATE AMINO TRANSFERASE 17 Units/L (15-37); BLOOD UREA NITROGEN 22 mg/dL (7-18); CALCIUM 8.8 mg/dL (8.5-10.1); CARBON DIOXIDE 28.8 mmol/L (21-32); CHLORIDE 104 mmol/L (98-107); COR CA(FOR HYPOALB) 9.5 mg/dL (8.5-10.1); CREATININE 1.11 mg/dL (0.55-1.02); GLUCOSE 90 mg/dL (65-99); MAGNESIUM 1.8 mg/dL (2.0-2.9); POTASSIUM 3.6 mmol/L (3.5-5.1); SODIUM 141 mmol/L (136-145); TOTAL PROTEIN 6.4 g/dL (6.4-8.2); eGFR NON BLACK RACES 50 (>60)
[2023-06-18] MEDS ORDERED: PATIENT'S HOME MEDICATION (Losartan 25 mg tablet) PO SCH (09:00)
[2023-06-18] MEDS: VIBRAMYCIN 100 MG in D5W 250 ML IV 250 ML IV SCH (09:36)
[2023-06-18] MEDS: MAG-OX TAB PO SCH (09:36)
[2023-06-18] MEDS: ROCEPHIN VIAL 1 GRAM 1 G in NS 100 ML IV 100 ML IV SCH (09:36)
[2023-06-18] MEDS: K-DUR TAB 20 MEQ PO SCH (09:37)
[2023-06-18] MEDS: COZAAR PO SCH (09:37)
[2023-06-18] MEDS: CYMBALTA PO SCH (21:44)
[2023-06-19 05:40] LABS: BASOPHILS % (AUTO) 0.4 % (0.2-1.0); EOSINOPHILS # (AUTO) 0.1 x10^3/uL (0.0-0.2); EOSINOPHILS % (AUTO) 1.8 % (0.9-2.9); HEMATOCRIT 35.4 % (36.0-47.0); HEMOGLOBIN 11.9 g/dL (12.0-16.0); LYMPHOCYTES # (AUTO) 1.3 X10^3/uL (1.3-2.9); MEAN CORPUSCULAR HEMOGLOBIN 31.7 pg (27.0-34.0); MEAN CORPUSCULAR HGB CONC 33.6 g/dL (33.0-35.0); MEAN CORPUSCULAR VOLUME 94.2 fL (80.0-100.0); MEAN PLATELET VOLUME 8.3 fL (7.4-11.0); MONOCYTES # (AUTO) 0.8 x10^3/uL (0.3-0.8); MONOCYTES % (AUTO) 13.8 % (0.0-13.0); NEUTROPHILS # (AUTO) 3.9 x10^3/uL (2.2-4.8); PLATELET COUNT 239 X10^3/uL (150.0-450.0); RED BLOOD COUNT 3.76 X10^6/uL (3.5-5.4); RED CELL DISTRIBUTION WIDTH 13.9 % (11.6-16.5); WHITE BLOOD COUNT 6.2 X10^3/uL (3.6-10.0)
[2023-06-19] MEDS: ROXICODONE TAB 5 MG PO PRN (05:42)
[2023-06-19 05:49] LABS: ALANINE AMINOTRANSFERASE 10 Units/L (12-78); ALKALINE PHOSPHATASE 56 Units/L (46-116); ASPARTATE AMINO TRANSFERASE 13 Units/L (15-37); BLOOD UREA NITROGEN 21 mg/dL (7-18); CALCIUM 8.6 mg/dL (8.5-10.1); CARBON DIOXIDE 27.4 mmol/L (21-32); CHLORIDE 100 mmol/L (98-107); COR CA(FOR HYPOALB) 9.4 mg/dL (8.5-10.1); COR NA(FOR HYPERGLY) 136 mmol/L (136-145); CREATININE 1.04 mg/dL (0.55-1.02); GLUCOSE 114 mg/dL (65-99); MAGNESIUM 1.7 mg/dL (2.0-2.9); POTASSIUM 3.7 mmol/L (3.5-5.1); SODIUM 136 mmol/L (136-145); TOTAL PROTEIN 6.3 g/dL (6.4-8.2); eGFR NON BLACK RACES 54 (>60)
[2023-06-19] MEDS ORDERED: CONSULT PHARMACY - POTASSIUM & MAGNESIUM XX SCH (07:00)
--- NOTE | 2023-06-19 08:02 | PCM.PROG ---
Progress Note Progress Note for Day of Date of Exam: 06/18/23 Subjective Subjective: The patient is more alert this morning but still groggy. She has fever overnight but is on IV Rocephin at this time. Will follow-up urine culture and sensitivity when available. Adjust treatment necessary. Past Medical Family Social History Allergies: Allergies ciprofloxacin [From Cipro] Allergy (Verified 01/23/22 17:50) meperidine [From Demerol] Allergy (Verified 01/23/22 17:50) prochlorperazine [From Compazine] Allergy (Verified 01/23/22 17:50) Sulfa (Sulfonamide Antibiotics) [SULFA] Allergy (Verified 01/23/22 17:50) Vital Signs and I&O's Vital Signs: Vital Signs Temperature 98.4 F Temperature 99.6 F Pulse Rate [Brachial] 75 Pulse Rate [Brachial] 83 Respiratory Rate 20 Respiratory Rate 20 Respiratory Rate 20 Respiratory Rate 19 Blood Pressure [Right Arm] 176/77 Blood Pressure [Right Arm] 150/77 O2 Sat by Pulse Oximetry 93 O2 Sat by Pulse Oximetry 96 Intake and Output: Intake & Output 06/16/23 06/17/23 06/18/23 06/19/23 11:59 11:59 11:59 11:59 Intake Total 3103 / 3103 1594 / 1594 Output Total 2700 / 2700 2910 / 2910 Balance 403 / 403 -1316 / -1316 Physical Exam Oriented: Not Oriented and Unable to test Eyes: Normal Ear: Normal Nose: Normal Respiratory: Normal Cardiovascular: Normal Auscultation: Bowel Sounds: Normal Tenderness: Normal Skin: Decreased Turgur Speech Pattern: Clear Laboratory and Diagnostics 06/19/23 04:45 06/19/23 04:45 Labs: 06/17/23 03:07 Urine,Catheterized Urine Culture - Final Enterococcus Faecalis 06/17/23 03:20 Blood Blood Culture - Preliminary 06/17/23 03:10 Blood Blood Culture - Preliminary Laboratory WBC 6.2 X10^3/uL (3.6-10.0) 06/19/23 04:45 RBC 3.76 X10^6/uL (3.5-5.4) 06/19/23 04:45 Hgb 11.9 g/dL (12.0-16.0) L 06/19/23 04:45 Hct 35.4 % (36.0-47.0) L 06/19/23 04:45 MCV 94.2 fL (80.0-100.0) 06/19/23 04:45 MCH 31.7 pg (27.0-34.0) 06/19/23 04:45 MCHC 33.6 g/dL (33.0-35.0) 06/19/23 04:45 RDW 13.9 % (11.6-16.5) 06/19/23 04:45 Plt Count 239 X10^3/uL (150.0-450.0) 06/19/23 04:45 MPV 8.3 fL (7.4-11.0) 06/19/23 04:45 Neut % (Auto) 63.0 % (42.0-75.0) 06/19/23 04:45 Lymph % (Auto) 21.0 % (21.0-51.0) 06/19/23 04:45 [place] % (Auto) 13.8 % (0.0-13.0) H 06/19/23 04:45 Eos % (Auto) 1.8 % (0.9-2.9) 06/19/23 04:45 Baso % (Auto) 0.4 % (0.2-1.0) 06/19/23 04:45 Neut # (Auto) 3.9 x10^3/uL (2.2-4.8) 06/19/23 04:45 Lymph # (Auto) 1.3 X10^3/uL (1.3-2.9) 06/19/23 04:45 [place] # (Auto) 0.8 x10^3/uL (0.3-0.8) 06/19/23 04:45 Eos # (Auto) 0.1 x10^3/uL (0.0-0.2) 06/19/23 04:45 Baso # (Auto) 0.0 X10^3/uL (0.0-0.1) 06/19/23 04:45 Absolute Nucleated RBC 0.2 /100WBC 06/19/23 04:45 Sodium 136 mmol/L (136-145) 06/19/23 04:45 Corrected Sodium 136 mmol/L (136-145) 06/19/23 04:45 Potassium 3.7 mmol/L (3.5-5.1) 06/19/23 04:45 Chloride 100 mmol/L (98-107) 06/19/23 04:45 Carbon Dioxide 27.4 mmol/L (21-32) 06/19/23 04:45 BUN 21 mg/dL (7-18) H 06/19/23 04:45 Creatinine 1.04 mg/dL (0.55-1.02) H 06/19/23 04:45 Est GFR (MDRD) Af Amer > 60 (>60) 06/19/23 04:45 Est GFR (MDRD) Non-Af 54 (>60) L 06/19/23 04:45 Glucose 114 mg/dL (65-99) H 06/19/23 04:45 Lactic Acid 0.6 mmol/L (0.4-2.0) 06/17/23 03:10 Calcium 8.6 mg/dL (8.5-10.1) 06/19/23 04:45 Corrected Calcium 9.4 mg/dL (8.5-10.1) 06/19/23 04:45 Magnesium 1.7 mg/dL (2.0-2.9) L 06/19/23 04:45 Total Bilirubin 0.50 mg/dL (0.2-1.0) 06/19/23 04:45 AST 13 Units/L (15-37) L 06/19/23 04:45 ALT 10 Units/L (12-78) L 06/19/23 04:45 Alkaline Phosphatase 56 Units/L (46-116) 06/19/23 04:45 Creatine Kinase 76 Units/L (26-192) 06/17/23 03:10 Troponin I High Sens 8.1 ng/L (4.0-60.0) 06/17/23 03:10 B-Natriuretic Peptide 74.3 pg/mL (0-79) 06/17/23 03:10 Total Protein 6.3 g/dL (6.4-8.2) L 06/19/23 04:45 Albumin 3.0 g/dL (3.4-5.0) L 06/19/23 04:45 Globulin 3.3 g/dL (2.5-4.5) 06/19/23 04:45 Albumin/Globulin Ratio 0.9 Ratio (1.1-2.1) L 06/19/23 04:45 Specimen Type Catherized urine 06/17/23 03:07 Urine Color Yellow (YELLOW) 06/17/23 03:07 Urine Appearance Clear (CLEAR) 06/17/23 03:07 Urine pH 6.5 (5.0 - 8.0) 06/17/23 03:07 Ur Specific [place] 1.015 (1.000-1.030) 06/17/23 03:07 Urine Protein Negative (NEGATIVE) 06/17/23 03:07 Urine Glucose (UA) Negative (NEGATIVE) 06/17/23 03:07 Urine Ketones Negative (NEGATIVE) 06/17/23 03:07 Urine Blood Negative (NEGATIVE) 06/17/23 03:07 Urine Nitrite Negative (NEGATIVE) 06/17/23 03:07 Urine Bilirubin Negative (NEGATIVE) 06/17/23 03:07 Urine Urobilinogen Normal (NORMAL) 06/17/23 03:07 Ur Leukocyte Esterase 1+ (NEGATIVE) 06/17/23 03:07 Urine RBC 0-2 /HPF (0-3) 06/17/23 03:07 Urine WBC 10-20 /HPF (0-5) A 06/17/23 03:07 Ur Squamous Epith Cells Rare /HPF (NEGATIVE) 06/17/23 03:07 Urine Bacteria 1+ /HPF (NEGATIVE) 06/17/23 03:07 Hyaline Casts Few /LPF (NEGATIVE) 06/17/23 03:07 Ur Culture Indicated? Yes/culture set up 06/17/23 03:07 Resp Viral Panel (PCR) See scanned report 06/17/23 06:20 Plan (1) Altered mental state: Status: Acute Qualifiers: Altered mental status type: transient alteration of awareness Qualified Code(s): R40.4 - Transient alteration of awareness Plan: We will treat the patient's dehydration with IV fluid and her UTI with IV Rocephin and I think this should help return her almost 8 to her normal baseline. (2) UTI (urinary tract infection): Status: Acute Plan: Continue IV Rocephin at this time. Follow-up urine culture and s ensitivity when available. (3) Acute dehydration: Status: Acute Plan: Slow IV hydration. (4) Parkinsons disease: Status: Chronic Plan: We will resume the patient's carbidopalevodopa. (5) Primary hypertension: Status: Chronic Plan: Monitor the patient's blood pressure daily. We will resume her losartan 25 mg daily. (6) On potassium wasting diuretic therapy: Status: Chronic Plan: Monitor daily potassiums. We will hold the patient's home furosemide at this time. (7) Discoloration of skin of foot: Status: Acute Plan: Monitor patient's right lower extremity/foot for worsening signs of peripheral arterial disease.
[2023-06-19] MEDS ORDERED: CYMBALTA PO SCH (09:00)
--- NOTE | 2023-06-19 10:01 | PCM.PROG ---
Progress Note Progress Note for Day of Date of Exam: 06/19/23 Subjective Subjective: The patient is more alert this morning but still groggy. See the patient is growing Enterococcus faecalis. It is sensitive to linezolid. However, it is resistant to the Rocephin and doxycycline that she is receiving. This morning I will discontinue the Rocephin and doxycycline. I will start her on IV linezolid 600 mg IV twice daily. Possible discharge home tomorrow morning if the patient is afebrile over the next 24 hours. If she is tolerating the linezolid we will change it over to oral tablets so she can finish out a 10-day treatment. The patient's blood pressure is elevated, more times than not. I will start her on Coreg 3.125 mg twice daily for improved hypertension control. Past Medical Family Social History Allergies: Allergies ciprofloxacin [From Cipro] Allergy (Verified 01/23/22 17:50) meperidine [From Demerol] Allergy (Verified 01/23/22 17:50) prochlorperazine [From Compazine] Allergy (Verified 01/23/22 17:50) Sulfa (Sulfonamide Antibiotics) [SULFA] Allergy (Verified 01/23/22 17:50) Review of Systems ROS: No change since H&P Vital Signs and I&O's Vital Signs: Vital Signs Temperature 98.4 F Temperature 99.6 F Pulse Rate [Brachial] 75 Pulse Rate [Brachial] 83 Respiratory Rate 20 Respiratory Rate 20 Respiratory Rate 20 Respiratory Rate 19 Blood Pressure [Right Arm] 176/77 Blood Pressure [Right Arm] 150/77 O2 Sat by Pulse Oximetry 93 O2 Sat by Pulse Oximetry 96 Intake and Output: Intake & Output 06/16/23 06/17/23 06/18/23 06/19/23 11:59 11:59 11:59 11:59 Intake Total 3103 / 3103 1594 / 1594 Output Total 2700 / 2700 2910 / 2910 Balance 403 / 403 -1316 / -1316 Physical Exam Oriented: Not Oriented and Unable to test Eyes: Normal Ear: Normal Nose: Normal Respiratory: Normal Cardiovascular: Normal Auscultation: Bowel Sounds: Normal Tenderness: Normal Skin: Decreased Turgur Speech Pattern: Clear Laboratory and Diagnostics 06/19/23 04:45 06/19/23 04:45 Labs: 06/17/23 03:07 Urine,Catheterized Urine Culture - Final Enterococcus Faecalis 06/17/23 03:20 Blood Blood Culture - Preliminary 06/17/23 03:10 Blood Blood Culture - Preliminary Laboratory WBC 6.2 X10^3/uL (3.6-10.0) 06/19/23 04:45 RBC 3.76 X10^6/uL (3.5-5.4) 06/19/23 04:45 Hgb 11.9 g/dL (12.0-16.0) L 06/19/23 04:45 Hct 35.4 % (36.0-47.0) L 06/19/23 04:45 MCV 94.2 fL (80.0-100.0) 06/19/23 04:45 MCH 31.7 pg (27.0-34.0) 06/19/23 04:45 MCHC 33.6 g/dL (33.0-35.0) 06/19/23 04:45 RDW 13.9 % (11.6-16.5) 06/19/23 04:45 Plt Count 239 X10^3/uL (150.0-450.0) 06/19/23 04:45 MPV 8.3 fL (7.4-11.0) 06/19/23 04:45 Neut % (Auto) 63.0 % (42.0-75.0) 06/19/23 04:45 Lymph % (Auto) 21.0 % (21.0-51.0) 06/19/23 04:45 [place] % (Auto) 13.8 % (0.0-13.0) H 06/19/23 04:45 Eos % (Auto) 1.8 % (0.9-2.9) 06/19/23 04:45 Baso % (Auto) 0.4 % (0.2-1.0) 06/19/23 04:45 Neut # (Auto) 3.9 x10^3/uL (2.2-4.8) 06/19/23 04:45 Lymph # (Auto) 1.3 X10^3/uL (1.3-2.9) 06/19/23 04:45 [place] # (Auto) 0.8 x10^3/uL (0.3-0.8) 06/19/23 04:45 Eos # (Auto) 0.1 x10^3/uL (0.0-0.2) 06/19/23 04:45 Baso # (Auto) 0.0 X10^3/uL (0.0-0.1) 06/19/23 04:45 Absolute Nucleated RBC 0.2 /100WBC 06/19/23 04:45 Sodium 136 mmol/L (136-145) 06/19/23 04:45 Corrected Sodium 136 mmol/L (136-145) 06/19/23 04:45 Potassium 3.7 mmol/L (3.5-5.1) 06/19/23 04:45 Chloride 100 mmol/L (98-107) 06/19/23 04:45 Carbon Dioxide 27.4 mmol/L (21-32) 06/19/23 04:45 BUN 21 mg/dL (7-18) H 06/19/23 04:45 Creatinine 1.04 mg/dL (0.55-1.02) H 06/19/23 04:45 Est GFR (MDRD) Af Amer > 60 (>60) 06/19/23 04:45 Est GFR (MDRD) Non-Af 54 (>60) L 06/19/23 04:45 Glucose 114 mg/dL (65-99) H 06/19/23 04:45 Lactic Acid 0.6 mmol/L (0.4-2.0) 06/17/23 03:10 Calcium 8.6 mg/dL (8.5-10.1) 06/19/23 04:45 Corrected Calcium 9.4 mg/dL (8.5-10.1) 06/19/23 04:45 Magnesium 1.7 mg/dL (2.0-2.9) L 06/19/23 04:45 Total Bilirubin 0.50 mg/dL (0.2-1.0) 06/19/23 04:45 AST 13 Units/L (15-37) L 06/19/23 04:45 ALT 10 Units/L (12-78) L 06/19/23 04:45 Alkaline Phosphatase 56 Units/L (46-116) 06/19/23 04:45 Creatine Kinase 76 Units/L (26-192) 06/17/23 03:10 Troponin I High Sens 8.1 ng/L (4.0-60.0) 06/17/23 03:10 B-Natriuretic Peptide 74.3 pg/mL (0-79) 06/17/23 03:10 Total Protein 6.3 g/dL (6.4-8.2) L 06/19/23 04:45 Albumin 3.0 g/dL (3.4-5.0) L 06/19/23 04:45 Globulin 3.3 g/dL (2.5-4.5) 06/19/23 04:45 Albumin/Globulin Ratio 0.9 Ratio (1.1-2.1) L 06/19/23 04:45 Specimen Type Catherized urine 06/17/23 03:07 Urine Color Yellow (YELLOW) 06/17/23 03:07 Urine Appearance Clear (CLEAR) 06/17/23 03:07 Urine pH 6.5 (5.0 - 8.0) 06/17/23 03:07 Ur Specific [place] 1.015 (1.000-1.030) 06/17/23 03:07 Urine Protein Negative (NEGATIVE) 06/17/23 03:07 Urine Glucose (UA) Negative (NEGATIVE) 06/17/23 03:07 Urine Ketones Negative (NEGATIVE) 06/17/23 03:07 Urine Blood Negative (NEGATIVE) 06/17/23 03:07 Urine Nitrite Negative (NEGATIVE) 06/17/23 03:07 Urine Bilirubin Negative (NEGATIVE) 06/17/23 03:07 Urine Urobilinogen Normal (NORMAL) 06/17/23 03:07 Ur Leukocyte Esterase 1+ (NEGATIVE) 06/17/23 03:07 Urine RBC 0-2 /HPF (0-3) 06/17/23 03:07 Urine WBC 10-20 /HPF (0-5) A 06/17/23 03:07 Ur Squamous Epith Cells Rare /HPF (NEGATIVE) 06/17/23 03:07 Urine Bacteria 1+ /HPF (NEGATIVE) 06/17/23 03:07 Hyaline Casts Few /LPF (NEGATIVE) 06/17/23 03:07 Ur Culture Indicated? Yes/culture set up 06/17/23 03:07 Resp Viral Panel (PCR) See scanned report 06/17/23 06:20 Plan (1) Altered mental state: Status: Acute Qualifiers: Altered mental status type: transient alteration of awareness Qualified Code(s): R40.4 - Transient alteration of awareness Narrative Support Text: Patient's mental status is improving and her confusion has resolved. Plan: We will treat the patient's dehydration with IV fluid and her UTI with IV Rocephin and I think this should help return her almost 8 to her normal baseline. (2) UTI (urinary tract infection): Status: Acute Plan: Discontinue Rocephin and doxycycline as she has grown Enterococcus faecalis and it is resistant to both of these antibiotics. I will start her on Zyvox 600 mg IV twice daily. I will plan on transitioning her to oral antibio tics as long as she is afebrile over the next 24 hours. If she is we will plan on discharging her home tomorrow. (3) Acute dehydration: Status: Acute Plan: Slow IV hydration. (4) Parkinsons disease: Status: Chronic Plan: We will resume the patient's carbidopalevodopa. (5) Primary hypertension: Status: Chronic Plan: Continue losartan 25 mg p.o. daily. I will start the patient on carvedilol 3.125 mg p.o. twice daily. Reevaluate blood pressure again tomorrow morning. (6) On potassium wasting diuretic therapy: Status: Chronic Plan: Monitor daily potassiums. We will hold the patient's home furosemide at this time. (7) Discoloration of skin of foot: Status: Acute Plan: Monitor patient's right lower extremity/foot for worsening signs of peripheral arterial disease.
[2023-06-19] MEDS: MAG-OX TAB PO SCH (11:33)
[2023-06-19] MEDS: ZYVOX 600MG IV 600 MG/300 ML BAG IV SCH (11:33)
[2023-06-19] MEDS: K-DUR TAB 20 MEQ PO SCH (12:33)
[2023-06-19] MEDS: COREG TAB 3.125 MG PO SCH (12:33)
[2023-06-19] MEDS: ZOFRAN INJ 4 MG VIAL IVP PRN (23:52)
[2023-06-20 06:18] LABS: BASOPHILS % (AUTO) 0.4 % (0.2-1.0); EOSINOPHILS # (AUTO) 0.2 x10^3/uL (0.0-0.2); EOSINOPHILS % (AUTO) 2.8 % (0.9-2.9); HEMATOCRIT 35.9 % (36.0-47.0); HEMOGLOBIN 11.9 g/dL (12.0-16.0); LYMPHOCYTES # (AUTO) 1.2 X10^3/uL (1.3-2.9); LYMPHOCYTES % (AUTO) 19.9 % (21.0-51.0); MEAN CORPUSCULAR HEMOGLOBIN 31.5 pg (27.0-34.0); MEAN CORPUSCULAR HGB CONC 33.2 g/dL (33.0-35.0); MEAN CORPUSCULAR VOLUME 95.1 fL (80.0-100.0); MEAN PLATELET VOLUME 8.4 fL (7.4-11.0); MONOCYTES # (AUTO) 0.8 x10^3/uL (0.3-0.8); MONOCYTES % (AUTO) 13.5 % (0.0-13.0); NEUTROPHILS # (AUTO) 3.8 x10^3/uL (2.2-4.8); NEUTROPHILS % (AUTO) 63.4 % (42.0-75.0); PLATELET COUNT 234 X10^3/uL (150.0-450.0); RED BLOOD COUNT 3.78 X10^6/uL (3.5-5.4); RED CELL DISTRIBUTION WIDTH 13.7 % (11.6-16.5); WHITE BLOOD COUNT 5.9 X10^3/uL (3.6-10.0)
[2023-06-20 06:40] LABS: ALANINE AMINOTRANSFERASE 9 Units/L (12-78); ALBUMIN 2.9 g/dL (3.4-5.0); ALKALINE PHOSPHATASE 58 Units/L (46-116); ASPARTATE AMINO TRANSFERASE 17 Units/L (15-37); BLOOD UREA NITROGEN 18 mg/dL (7-18); CALCIUM 8.8 mg/dL (8.5-10.1); CARBON DIOXIDE 28.9 mmol/L (21-32); CHLORIDE 99 mmol/L (98-107); COR CA(FOR HYPOALB) 9.7 mg/dL (8.5-10.1); CREATININE 1.07 mg/dL (0.55-1.02); GLUCOSE 107 mg/dL (65-99); MAGNESIUM 1.9 mg/dL (2.0-2.9); SODIUM 133 mmol/L (136-145); TOTAL PROTEIN 6.3 g/dL (6.4-8.2); eGFR NON BLACK RACES 52 (>60)
[2023-06-20] MEDS: CONSULT PHARMACY - POTASSIUM & MAGNESIUM XX SCH (07:27)
[2023-06-20] MEDS: MAG-OX TAB PO ONE (10:24)
[2023-06-20] MEDS: NS 500 ML IV 500 ML IV ONE (18:46)
--- NOTE | 2023-06-20 20:47 | PCM.PROG ---
Progress Note Progress Note for Day of Date of Exam: 06/20/23 Subjective Subjective: The patient is more alert this morning but still groggy. See the patient is growing Enterococcus faecalis in her urine. It is sensitive to linezolid. We were initially concerned the patient home this morning but her states that he is not able to take care of her at home. We will be discussing possible prison placement beginning of next week or to see if they decide to get some help at home to take care of her. Currently she is clinically improving since admission. Past Medical Family Social History Allergies: Allergies ciprofloxacin [From Cipro] Allergy (Verified 01/23/22 17:50) meperidine [From Demerol] Allergy (Verified 01/23/22 17:50) prochlorperazine [From Compazine] Allergy (Verified 01/23/22 17:50) Sulfa (Sulfonamide Antibiotics) [SULFA] Allergy (Verified 01/23/22 17:50) Review of Systems ROS: No change since H&P Vital Signs and I&O's Vital Signs: Vital Signs Temperature 98.7 F Pulse Rate [Brachial] 82 Respiratory Rate 18 Blood Pressure [Right Arm] 90/60 Blood Pressure [Right Arm] 90/58 O2 Sat by Pulse Oximetry 91 Intake and Output: Intake & Output 06/18/23 06/19/23 06/20/23 06/21/23 11:59 11:59 11:59 11:59 Intake Total 3103 / 3103 1594 / 1594 1800 / 1800 627 / 627 Output Total 2700 / 2700 2910 / 2910 2060 / 2060 650 / 650 Balance 403 / 403 -1316 / -1316 -260 / -260 -23 / -23 Physical Exam Oriented: Not Oriented and Unable to test Eyes: Normal Ear: Normal Nose: Normal Respiratory: Normal Cardiovascular: Normal Auscultation: Bowel Sounds: Normal Tenderness: Normal Skin: Decreased Turgur Speech Pattern: Clear Laboratory and Diagnostics 06/20/23 05:20 06/20/23 05:20 Labs: 06/17/23 03:07 Urine,Catheterized Urine Culture - Final Enterococcus Faecalis 06/17/23 03:20 Blood Blood Culture - Preliminary 06/17/23 03:10 Blood Blood Culture - Preliminary Laboratory WBC 5.9 X10^3/uL (3.6-10.0) 06/20/23 05:20 RBC 3.78 X10^6/uL (3.5-5.4) 06/20/23 05:20 Hgb 11.9 g/dL (12.0-16.0) L 06/20/23 05:20 Hct 35.9 % (36.0-47.0) L 06/20/23 05:20 MCV 95.1 fL (80.0-100.0) 06/20/23 05:20 MCH 31.5 pg (27.0-34.0) 06/20/23 05:20 MCHC 33.2 g/dL (33.0-35.0) 06/20/23 05:20 RDW 13.7 % (11.6-16.5) 06/20/23 05:20 Plt Count 234 X10^3/uL (150.0-450.0) 06/20/23 05:20 MPV 8.4 fL (7.4-11.0) 06/20/23 05:20 Neut % (Auto) 63.4 % (42.0-75.0) 06/20/23 05:20 Lymph % (Auto) 19.9 % (21.0-51.0) L 06/20/23 05:20 [place] % (Auto) 13.5 % (0.0-13.0) H 06/20/23 05:20 Eos % (Auto) 2.8 % (0.9-2.9) 06/20/23 05:20 Baso % (Auto) 0.4 % (0.2-1.0) 06/20/23 05:20 Neut # (Auto) 3.8 x10^3/uL (2.2-4.8) 06/20/23 05:20 Lymph # (Auto) 1.2 X10^3/uL (1.3-2.9) L 06/20/23 05:20 [place] # (Auto) 0.8 x10^3/uL (0.3-0.8) 06/20/23 05:20 Eos # (Auto) 0.2 x10^3/uL (0.0-0.2) 06/20/23 05:20 Baso # (Auto) 0.0 X10^3/uL (0.0-0.1) 06/20/23 05:20 Absolute Nucleated RBC 0.1 /100WBC 06/20/23 05:20 Sodium 133 mmol/L (136-145) L 06/20/23 05:20 Corrected Sodium TNP 06/20/23 05:20 Potassium 4.0 mmol/L (3.5-5.1) 06/20/23 05:20 Chloride 99 mmol/L (98-107) 06/20/23 05:20 Carbon Dioxide 28.9 mmol/L (21-32) 06/20/23 05:20 BUN 18 mg/dL (7-18) 06/20/23 05:20 Creatinine 1.07 mg/dL (0.55-1.02) H 06/20/23 05:20 Est GFR (MDRD) Af Amer > 60 (>60) 06/20/23 05:20 Est GFR (MDRD) Non-Af 52 (>60) L 06/20/23 05:20 Glucose 107 mg/dL (65-99) H 06/20/23 05:20 Lactic Acid 0.6 mmol/L (0.4-2.0) 06/17/23 03:10 Calcium 8.8 mg/dL (8.5-10.1) 06/20/23 05:20 Corrected Calcium 9.7 mg/dL (8.5-10.1) 06/20/23 05:20 Magnesium 1.9 mg/dL (2.0-2.9) L 06/20/23 05:20 Total Bilirubin 0.40 mg/dL (0.2-1.0) 06/20/23 05:20 AST 17 Units/L (15-37) 06/20/23 05:20 ALT 9 Units/L (12-78) L 06/20/23 05:20 Alkaline Phosphatase 58 Units/L (46-116) 06/20/23 05:20 Creatine Kinase 76 Units/L (26-192) 06/17/23 03:10 Troponin I High Sens 8.1 ng/L (4.0-60.0) 06/17/23 03:10 B-Natriuretic Peptide 74.3 pg/mL (0-79) 06/17/23 03:10 Total Protein 6.3 g/dL (6.4-8.2) L 06/20/23 05:20 Albumin 2.9 g/dL (3.4-5.0) L 06/20/23 05:20 Globulin 3.4 g/dL (2.5-4.5) 06/20/23 05:20 Albumin/Globulin Ratio 0.9 Ratio (1.1-2.1) L 06/20/23 05:20 Specimen Type Catherized urine 06/17/23 03:07 Urine Color Yellow (YELLOW) 06/17/23 03:07 Urine Appearance Clear (CLEAR) 06/17/23 03:07 Urine pH 6.5 (5.0 - 8.0) 06/17/23 03:07 Ur Specific [place] 1.015 (1.000-1.030) 06/17/23 03:07 Urine Protein Negative (NEGATIVE) 06/17/23 03:07 Urine Glucose (UA) Negative (NEGATIVE) 06/17/23 03:07 Urine Ketones Negative (NEGATIVE) 06/17/23 03:07 Urine Blood Negative (NEGATIVE) 06/17/23 03:07 Urine Nitrite Negative (NEGATIVE) 06/17/23 03:07 Urine Bilirubin Negative (NEGATIVE) 06/17/23 03:07 Urine Urobilinogen Normal (NORMAL) 06/17/23 03:07 Ur Leukocyte Esterase 1+ (NEGATIVE) 06/17/23 03:07 Urine RBC 0-2 /HPF (0-3) 06/17/23 03:07 Urine WBC 10-20 /HPF (0-5) A 06/17/23 03:07 Ur Squamous Epith Cells Rare /HPF (NEGATIVE) 06/17/23 03:07 Urine Bacteria 1+ /HPF (NEGATIVE) 06/17/23 03:07 Hyaline Casts Few /LPF (NEGATIVE) 06/17/23 03:07 Ur Culture Indicated? Yes/culture set up 06/17/23 03:07 Resp Viral Panel (PCR) See scanned report 06/17/23 06:20 Plan (1) Altered mental state: Status: Acute Qualifiers: Altered mental status type: transient alteration of awareness Qualified Code(s): R40.4 - Transient alteration of awareness Plan: We will treat the patient's dehydration with IV fluid and her UTI with IV Rocephin and I think this should help return her almost 8 to her normal baseline. (2) UTI (urinary tract infection): Status: Acute Plan: Discontinue Rocephin and doxycycline as she has grown Enterococcus faecalis and it is resistant to both of these antibiotics. I will start her on Zyvox 600 mg IV twice daily. I will plan on transitioning her to oral antibiotics as long as she is afebrile over the next 24 hours. If she is we will plan on discharging her home tomorrow. (3) Acute dehydration: Status: Acute Plan: Slow IV hydration. (4) Parkinsons disease: Status: Chronic Plan: We will resume the patient's carbidopalevodopa. (5) Primary hypertension: Status: Chronic Plan: Continue losartan 25 mg p.o. daily. I will start the patient on carvedilol 3.125 mg p.o. twice daily. Reevaluate blood pressure again tomorrow morning. (6) On potassium wasting diuretic therapy: Status: Chronic Plan: Monitor daily potassiums. We will hold the patient's home furosemide at this time. (7) Discoloration of skin of foot: Status: Acute Plan: Monitor patient's right lower extremity/foot for worsening signs of peripheral arterial disease.
[2023-06-20] MEDS: MIRALAX POWDER (255 GRAMS BTL) PO PRN (20:51)
[2023-06-20] MEDS ORDERED: COLACE CAP 100 MG PO SCH (21:00)
[2023-06-21 06:10] LABS: BASOPHILS % (AUTO) 0.3 % (0.2-1.0); EOSINOPHILS # (AUTO) 0.1 x10^3/uL (0.0-0.2); EOSINOPHILS % (AUTO) 2.5 % (0.9-2.9); HEMATOCRIT 35.3 % (36.0-47.0); HEMOGLOBIN 11.7 g/dL (12.0-16.0); LYMPHOCYTES # (AUTO) 0.9 X10^3/uL (1.3-2.9); LYMPHOCYTES % (AUTO) 14.6 % (21.0-51.0); MEAN CORPUSCULAR HEMOGLOBIN 31.7 pg (27.0-34.0); MEAN CORPUSCULAR HGB CONC 33.2 g/dL (33.0-35.0); MEAN CORPUSCULAR VOLUME 95.5 fL (80.0-100.0); MONOCYTES # (AUTO) 0.9 x10^3/uL (0.3-0.8); MONOCYTES % (AUTO) 14.6 % (0.0-13.0); PLATELET COUNT 245 X10^3/uL (150.0-450.0); RED BLOOD COUNT 3.69 X10^6/uL (3.5-5.4); WHITE BLOOD COUNT 5.9 X10^3/uL (3.6-10.0)
[2023-06-21 06:27] LABS: ALANINE AMINOTRANSFERASE 6 Units/L (12-78); ALBUMIN 2.8 g/dL (3.4-5.0); ALKALINE PHOSPHATASE 55 Units/L (46-116); ASPARTATE AMINO TRANSFERASE 15 Units/L (15-37); BLOOD UREA NITROGEN 21 mg/dL (7-18); CALCIUM 8.3 mg/dL (8.5-10.1); CARBON DIOXIDE 25.9 mmol/L (21-32); CHLORIDE 98 mmol/L (98-107); COR CA(FOR HYPOALB) 9.3 mg/dL (8.5-10.1); CREATININE 1.21 mg/dL (0.55-1.02); GLUCOSE 91 mg/dL (65-99); MAGNESIUM 1.9 mg/dL (2.0-2.9); POTASSIUM 3.9 mmol/L (3.5-5.1); SODIUM 130 mmol/L (136-145); TOTAL PROTEIN 5.9 g/dL (6.4-8.2); eGFR NON BLACK RACES 45 (>60)
[2023-06-21] MEDS ORDERED: CONSULT PHARMACY - POTASSIUM & MAGNESIUM XX SCH (07:00)
[2023-06-21] MEDS: K-DUR TAB 20 MEQ PO SCH (09:17)
[2023-06-21] MEDS: MAG-OX TAB PO SCH (09:17)
[2023-06-22 05:06] LABS: LYMPHOCYTES # (AUTO) 0.9 X10^3/uL (1.3-2.9); MEAN PLATELET VOLUME 8.1 fL (7.4-11.0); NEUTROPHILS # (AUTO) 3.2 x10^3/uL (2.2-4.8); NEUTROPHILS % (AUTO) 64.8 % (42.0-75.0); WHITE BLOOD COUNT 4.9 X10^3/uL (3.6-10.0)
[2023-06-22 05:25] LABS: BASOPHILS % (AUTO) 0.5 % (0.2-1.0); EOSINOPHILS # (AUTO) 0.1 x10^3/uL (0.0-0.2); EOSINOPHILS % (AUTO) 2.3 % (0.9-2.9); HEMATOCRIT 34.8 % (36.0-47.0); HEMOGLOBIN 11.5 g/dL (12.0-16.0); LYMPHOCYTES % (AUTO) 18.1 % (21.0-51.0); MEAN CORPUSCULAR HEMOGLOBIN 31.4 pg (27.0-34.0); MEAN CORPUSCULAR HGB CONC 33.1 g/dL (33.0-35.0); MONOCYTES # (AUTO) 0.7 x10^3/uL (0.3-0.8); MONOCYTES % (AUTO) 14.3 % (0.0-13.0); PLATELET COUNT 243 X10^3/uL (150.0-450.0); RED BLOOD COUNT 3.67 X10^6/uL (3.5-5.4); RED CELL DISTRIBUTION WIDTH 13.8 % (11.6-16.5)
[2023-06-22 05:46] LABS: ALANINE AMINOTRANSFERASE 7 Units/L (12-78); ALBUMIN 2.8 g/dL (3.4-5.0); ALKALINE PHOSPHATASE 51 Units/L (46-116); ASPARTATE AMINO TRANSFERASE 15 Units/L (15-37); BLOOD UREA NITROGEN 19 mg/dL (7-18); CALCIUM 8.4 mg/dL (8.5-10.1); CARBON DIOXIDE 27.2 mmol/L (21-32); CHLORIDE 101 mmol/L (98-107); COR CA(FOR HYPOALB) 9.4 mg/dL (8.5-10.1); CREATININE 1.14 mg/dL (0.55-1.02); GLUCOSE 88 mg/dL (65-99); POTASSIUM 4.2 mmol/L (3.5-5.1); SODIUM 138 mmol/L (136-145); TOTAL PROTEIN 5.9 g/dL (6.4-8.2); eGFR NON BLACK RACES 48 (>60)
--- NOTE | 2023-06-22 05:46 | RAD ---
EXAM:CHEST, 1 VIEWHISTORY:SOB; HX: CVA, HTNCOMPARISON:06/17/2023FINDINGS:The trachea is midline. The cardiac silhouette is unremarkable . The lungs are clear without focal infiltrate or effusion. The bony thorax is unremarkable. Stimulator electrode overlying the upper thoracic spine.IMPRESSION:No acute cardiopulmonary disease.THIS IS AN ELECTRONICALLY VERIFIED FINAL REPORT06/22/2023 5:43 AM - Electronically signed by Pollo Pereira MD
[2023-06-22] MEDS: MORPHINE SULFATE INJ 2 MG INJ IVP PRN (10:44)
[2023-06-22] MEDS: COZAAR PO SCH (12:27)
[2023-06-23 04:52] LABS: BASOPHILS % (AUTO) 0.5 % (0.2-1.0); EOSINOPHILS # (AUTO) 0.1 x10^3/uL (0.0-0.2); EOSINOPHILS % (AUTO) 1.3 % (0.9-2.9); HEMATOCRIT 35.3 % (36.0-47.0); HEMOGLOBIN 11.9 g/dL (12.0-16.0); LYMPHOCYTES # (AUTO) 0.7 X10^3/uL (1.3-2.9); LYMPHOCYTES % (AUTO) 11.6 % (21.0-51.0); MEAN CORPUSCULAR HEMOGLOBIN 31.7 pg (27.0-34.0); MEAN CORPUSCULAR HGB CONC 33.5 g/dL (33.0-35.0); MEAN CORPUSCULAR VOLUME 94.5 fL (80.0-100.0); MEAN PLATELET VOLUME 7.8 fL (7.4-11.0); MONOCYTES # (AUTO) 0.8 x10^3/uL (0.3-0.8); MONOCYTES % (AUTO) 13.5 % (0.0-13.0); NEUTROPHILS # (AUTO) 4.2 x10^3/uL (2.2-4.8); NEUTROPHILS % (AUTO) 73.1 % (42.0-75.0); PLATELET COUNT 259 X10^3/uL (150.0-450.0); RED BLOOD COUNT 3.74 X10^6/uL (3.5-5.4); RED CELL DISTRIBUTION WIDTH 13.6 % (11.6-16.5); WHITE BLOOD COUNT 5.7 X10^3/uL (3.6-10.0)
[2023-06-23 04:58] LABS: ALANINE AMINOTRANSFERASE < 6 Units/L (12-78); ALBUMIN 2.9 g/dL (3.4-5.0); ALKALINE PHOSPHATASE 53 Units/L (46-116); ASPARTATE AMINO TRANSFERASE 16 Units/L (15-37); BLOOD UREA NITROGEN 18 mg/dL (7-18); CALCIUM 8.6 mg/dL (8.5-10.1); CARBON DIOXIDE 26.4 mmol/L (21-32); CHLORIDE 99 mmol/L (98-107); COR CA(FOR HYPOALB) 9.5 mg/dL (8.5-10.1); CREATININE 1.03 mg/dL (0.55-1.02); GLUCOSE 98 mg/dL (65-99); POTASSIUM 4.1 mmol/L (3.5-5.1); SODIUM 133 mmol/L (136-145); TOTAL PROTEIN 6.2 g/dL (6.4-8.2); eGFR NON BLACK RACES 54 (>60)
[2023-06-23] MEDS: TYLENOL 325 MG TAB PO PRN (20:08)
--- NOTE | 2023-06-23 20:46 | PCM.PROG ---
Progress Note Progress Note for Day of Date of Exam: 06/23/23 Subjective Subjective: The patient reports she is feels a little better this morning. She has some trouble with swallowing over the weekend, but according to her family, this is a chronic problem. There was discussion about placing a PEG tube but she does not want one so we are not going to do that at this time. Given the patient's extremely frail condition we will be getting her in temporary rehab at [facility] for physical therapy for approximately 20 days. Because the patient is having trouble swallowing and she has a UTI secondary to Enterococcus faecalis that is susceptible to IV linezolid we will plan on continuing the IV antibiotics to make sure that she gets a total of 10 days worth to treat her UTI. Past Medical Family Social History Allergies: Allergies ciprofloxacin [From Cipro] Allergy (Verified 01/23/22 17:50) meperidine [From Demerol] Allergy (Verified 01/23/22 17:50) prochlorperazine [From Compazine] Allergy (Verified 01/23/22 17:50) Sulfa (Sulfonamide Antibiotics) [SULFA] Allergy (Verified 01/23/22 17:50) Review of Systems ROS: No change since H&P Vital Signs and I&O's Vital Signs: Vital Signs Temperature 98.4 F Temperature 98.2 F Pulse Rate [Brachial] 82 Pulse Rate [Brachial] 87 Respiratory Rate 18 Respiratory Rate 18 Respiratory Rate 20 Blood Pressure [Left Arm] 120/69 Blood Pressure [Left Arm] 118/62 O2 Sat by Pulse Oximetry 96 O2 Sat by Pulse Oximetry 96 Intake and Output: Intake & Output 06/21/23 06/22/23 06/23/23 06/24/23 11:59 11:59 11:59 11:59 Intake Total 1787 / 1787 1022 / 1022 1201 / 1201 944 / 944 Output Total 950 / 950 850 / 850 900 / 900 1450 / 1450 Balance 837 / 837 172 / 172 301 / 301 -506 / -506 Physical Exam Oriented: Not Oriented and Unable to test Eyes: Normal Ear: Normal Nose: Normal Respiratory: Normal Cardiovascular: Normal Auscultation: Bowel Sounds: Normal Tenderness: Normal Skin: Decreased Turgur Speech Pattern: Clear Laboratory and Diagnostics 06/23/23 04:23 06/23/23 04:23 Labs: 06/17/23 03:20 Blood Blood Culture - Final 06/17/23 03:10 Blood Blood Culture - Final 06/17/23 03:07 Urine,Catheterized Urine Culture - Final Enterococcus Faecalis Laboratory WBC 5.7 X10^3/uL (3.6-10.0) 06/23/23 04:23 RBC 3.74 X10^6/uL (3.5-5.4) 06/23/23 04:23 Hgb 11.9 g/dL (12.0-16.0) L 06/23/23 04:23 Hct 35.3 % (36.0-47.0) L 06/23/23 04:23 MCV 94.5 fL (80.0-100.0) 06/23/23 04:23 MCH 31.7 pg (27.0-34.0) 06/23/23 04:23 MCHC 33.5 g/dL (33.0-35.0) 06/23/23 04:23 RDW 13.6 % (11.6-16.5) 06/23/23 04:23 Plt Count 259 X10^3/uL (150.0-450.0) 06/23/23 04:23 MPV 7.8 fL (7.4-11.0) 06/23/23 04:23 Neut % (Auto) 73.1 % (42.0-75.0) 06/23/23 04:23 Lymph % (Auto) 11.6 % (21.0-51.0) L 06/23/23 04:23 [place] % (Auto) 13.5 % (0.0-13.0) H 06/23/23 04:23 Eos % (Auto) 1.3 % (0.9-2.9) 06/23/23 04:23 Baso % (Auto) 0.5 % (0.2-1.0) 06/23/23 04:23 Neut # (Auto) 4.2 x10^3/uL (2.2-4.8) 06/23/23 04:23 Lymph # (Auto) 0.7 X10^3/uL (1.3-2.9) L 06/23/23 04:23 [place] # (Auto) 0.8 x10^3/uL (0.3-0.8) 06/23/23 04:23 Eos # (Auto) 0.1 x10^3/uL (0.0-0.2) 06/23/23 04:23 Baso # (Auto) 0.0 X10^3/uL (0.0-0.1) 06/23/23 04:23 Absolute Nucleated RBC 0.1 /100WBC 06/23/23 04:23 Sodium 133 mmol/L (136-145) L 06/23/23 04:23 Corrected Sodium TNP 06/23/23 04:23 Potassium 4.1 mmol/L (3.5-5.1) 06/23/23 04:23 Chloride 99 mmol/L (98-107) 06/23/23 04:23 Carbon Dioxide 26.4 mmol/L (21-32) 06/23/23 04:23 BUN 18 mg/dL (7-18) 06/23/23 04:23 Creatinine 1.03 mg/dL (0.55-1.02) H 06/23/23 04:23 Est GFR (MDRD) Af Amer > 60 (>60) 06/23/23 04:23 Est GFR (MDRD) Non-Af 54 (>60) L 06/23/23 04:23 Glucose 98 mg/dL (65-99) 06/23/23 04:23 Lactic Acid 0.6 mmol/L (0.4-2.0) 06/17/23 03:10 Calcium 8.6 mg/dL (8.5-10.1) 06/23/23 04:23 Corrected Calcium 9.5 mg/dL (8.5-10.1) 06/23/23 04:23 Magnesium 2.0 mg/dL (2.0-2.9) 06/22/23 04:30 Total Bilirubin 0.70 mg/dL (0.2-1.0) 06/23/23 04:23 AST 16 Units/L (15-37) 06/23/23 04:23 ALT < 6 Units/L (12-78) L 06/23/23 04:23 Alkaline Phosphatase 53 Units/L (46-116) 06/23/23 04:23 Creatine Kinase 76 Units/L (26-192) 06/17/23 03:10 Troponin I High Sens 8.1 ng/L (4.0-60.0) 06/17/23 03:10 B-Natriuretic Peptide 74.3 pg/mL (0-79) 06/17/23 03:10 Total Protein 6.2 g/dL (6.4-8.2) L 06/23/23 04:23 Albumin 2.9 g/dL (3.4-5.0) L 06/23/23 04:23 Globulin 3.3 g/dL (2.5-4.5) 06/23/23 04:23 Albumin/Globulin Ratio 0.9 Ratio (1.1-2.1) L 06/23/23 04:23 Specimen Type Catherized urine 06/17/23 03:07 Urine Color Yellow (YELLOW) 06/17/23 03:07 Urine Appearance Clear (CLEAR) 06/17/23 03:07 Urine pH 6.5 (5.0 - 8.0) 06/17/23 03:07 Ur Specific [place] 1.015 (1.000-1.030) 06/17/23 03:07 Urine Protein Negative (NEGATIVE) 06/17/23 03:07 Urine Glucose (UA) Negative (NEGATIVE) 06/17/23 03:07 Urine Ketones Negative (NEGATIVE) 06/17/23 03:07 Urine Blood Negative (NEGATIVE) 06/17/23 03:07 Urine Nitrite Negative (NEGATIVE) 06/17/23 03:07 Urine Bilirubin Negative (NEGATIVE) 06/17/23 03:07 Urine Urobilinogen Normal (NORMAL) 06/17/23 03:07 Ur Leukocyte Esterase 1+ (NEGATIVE) 06/17/23 03:07 Urine RBC 0-2 /HPF (0-3) 06/17/23 03:07 Urine WBC 10-20 /HPF (0-5) A 06/17/23 03:07 Ur Squamous Epith Cells Rare /HPF (NEGATIVE) 06/17/23 03:07 Urine Bacteria 1+ /HPF (NEGATIVE) 06/17/23 03:07 Hyaline Casts Few /LPF (NEGATIVE) 06/17/23 03:07 Ur Culture Indicated? Yes/culture set up 06/17/23 03:07 Resp Viral Panel (PCR) See scanned report 06/17/23 06:20 Plan (1) Altered mental state: Status: Acute Qualifiers: Altered mental status type: transient alteration of awareness Qualified Code(s): R40.4 - Transient alteration of awareness Plan: We will treat the patient's dehydration with IV fluid and her UTI with IV Rocephin and I think this should help return her almost 8 to her normal baseline. (2) UTI (urinary tract infection): Status: Acute Plan: Discontinue Rocephin and doxycycline as she has grown Enterococcus faecalis and it is resistant to both of these antibiotics. I will start her on Zyvox 600 mg IV twice daily. I will plan on transitioning her to oral antibiotics as long as she is afebrile over the next 24 hours. If she is we will plan on discharging her home tomorrow. (3) Acute dehydration: Status: Resolved Plan: Slow IV hydration. (4) Parkinsons disease: Status: Chronic Plan: We will resume the patient's carbidopalevodopa. (5) Primary hypertension: Status: Chronic Plan: Continue losartan 25 mg p.o. daily. I will start the patient on carvedilol 3.125 mg p.o. twice daily. Reevaluate blood pressure again tomorrow morning. (6) On potassium wasting diuretic therapy: Status: Chronic Plan: Monitor daily potassiums. We will hold the patient's home furosemide at this time. (7) Discoloration of skin of foot: Status: Acute Plan: Monitor patient's right lower extremity/foot for worsening signs of peripheral arterial disease. (8) Dysphagia: Status: Acute Plan: Since the patient is having trouble swallowing we will continue her on IV linezolid in order to treat her UTI secondary Enterococcus faecalis. 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 for inpatient rehabilitation for 20 days with physical therapy consultation.
[2023-06-24 06:32] LABS: BASOPHILS % (AUTO) 0.7 % (0.2-1.0); EOSINOPHILS # (AUTO) 0.1 x10^3/uL (0.0-0.2); EOSINOPHILS % (AUTO) 1.6 % (0.9-2.9); HEMATOCRIT 34.4 % (36.0-47.0); HEMOGLOBIN 11.8 g/dL (12.0-16.0); LYMPHOCYTES # (AUTO) 1.1 X10^3/uL (1.3-2.9); LYMPHOCYTES % (AUTO) 20.7 % (21.0-51.0); MEAN CORPUSCULAR HEMOGLOBIN 32.4 pg (27.0-34.0); MEAN CORPUSCULAR HGB CONC 34.2 g/dL (33.0-35.0); MEAN CORPUSCULAR VOLUME 94.7 fL (80.0-100.0); MEAN PLATELET VOLUME 8.1 fL (7.4-11.0); MONOCYTES # (AUTO) 0.7 x10^3/uL (0.3-0.8); MONOCYTES % (AUTO) 13.2 % (0.0-13.0); NEUTROPHILS # (AUTO) 3.5 x10^3/uL (2.2-4.8); NEUTROPHILS % (AUTO) 63.8 % (42.0-75.0); PLATELET COUNT 241 X10^3/uL (150.0-450.0); RED BLOOD COUNT 3.63 X10^6/uL (3.5-5.4); RED CELL DISTRIBUTION WIDTH 13.6 % (11.6-16.5); WHITE BLOOD COUNT 5.5 X10^3/uL (3.6-10.0)
[2023-06-24 06:43] LABS: ALANINE AMINOTRANSFERASE 11 Units/L (12-78); ALBUMIN 2.7 g/dL (3.4-5.0); ALKALINE PHOSPHATASE 48 Units/L (46-116); ASPARTATE AMINO TRANSFERASE 19 Units/L (15-37); BLOOD UREA NITROGEN 18 mg/dL (7-18); CALCIUM 8.4 mg/dL (8.5-10.1); CHLORIDE 103 mmol/L (98-107); COR CA(FOR HYPOALB) 9.4 mg/dL (8.5-10.1); CREATININE 1.05 mg/dL (0.55-1.02); GLUCOSE 91 mg/dL (65-99); SODIUM 139 mmol/L (136-145); TOTAL PROTEIN 5.9 g/dL (6.4-8.2); eGFR NON BLACK RACES 53 (>60)
[2023-06-24] MEDS: DULCOLAX SUPPOSITORY 10 MG RECTAL ONE ×2 (11:30→15:44)
[2023-06-24 17:20] VITALS: BP 94/54; PULSE 98; RESP 18; TEMP 98; O2SAT 98
== END 2023-06-24 16:35 | DRG 690 ==
LOC: ER 02:43 → MED/SURG 02:43
PROVIDERS: ADMIT Family Medicine; ATTEND Family Medicine
DX: I10 Essential (primary) hypertension; E83.42 Hypomagnesemia; E78.5 Hyperlipidemia, unspecified; R54 Age-related physical debility; Z79.899 Other long term (current) drug therapy; E86.0 Dehydration; R13.11 Dysphagia, oral phase; Y92.230 Patient room in hospital as the place of occurrence of the external cause; R40.4 Transient alteration of awareness; W51.XXXA Accidental striking against or bumped into by another person, initial encounter; L81.8 Other specified disorders of pigmentation; G20.A1 Parkinson's disease without dyskinesia, without mention of fluctuations; S81.812A Laceration without foreign body, left lower leg, initial encounter; Z87.440 Personal history of urinary (tract) infections; N39.0 Urinary tract infection, site not specified; Z66 Do not resuscitate; B95.2 Enterococcus as the cause of diseases classified elsewhere; K21.9 Gastro-esophageal reflux disease without esophagitis